=== PATIENT | male | born 1960 | race Hispanic/Latino ===

== ENCOUNTER 2017-03-13 14:17 | Emergency (ER) | payer OTHER ==
[2017-03-13 15:30] VITALS: BP 144/89
--- NOTE | 2017-03-13 19:46 | Emergency Department Report ---
ED Extremity Problem HPI - General Chief complaint: Extremity Problem,Nontraumatic Stated complaint: RIGHT FOOT INFECTED Time Seen by Provider: 03/13/17 19:29 Source: patient Mode of arrival: Ambulatory Limitations: No Limitations - History of Present Illness Initial comments: Patient he reports right foot infection and pain 2 weeks. Denies similar incident in the past. He said started off with scaling and he's been soaking in Epsom salts but pain and redness is getting worse over the last 2 weeks. Patient does not have a primary care physician. Tetanus vaccine is up-to-date. He denies any injury. He reports that started off with dryness and scaling and then became infected. Pain is 4 out of 10 worse with movement. Denies any fever or chills. Denies any medical problems. Patient is a smoker. MD Complaint: extremity pain, extremity swelling Onset/Timin -: week(s) Location: right, lower extremity History of Same: No -: No myalgia, Yes arthralgia, No fever, No associated dyspnea, No associated chest pain Radiation: none Severity scale (0 -10): 4 Quality: aching Consistency: intermittent Improves with: rest Worsens with: walking, palpation Associated Symptoms: arthralgias. denies: chest pain, shortness of breath, fever, myalgias, rash - Related Data Previous Rx's Medication Instructions Recorded Last Taken Type Acetaminophen/Codeine [Tylenol 1 tab PO Q6H PRN #12 tab 03/13/17 Unknown Rx /Codeine # 3 tab] Fluconazole [Diflucan TAB] 100 mg PO QDAY 3 Days #3 tablet 03/13/17 Unknown Rx Ibuprofen [Motrin] 600 mg PO Q8H PRN 5 Days #15 tablet 03/13/17 Unknown Rx Miconazole 2% [Monistat-Derm] 15 gm TP BID 1 Days #1 tube 03/13/17 Unknown Rx Sulfamethoxazole/Trimethoprim 1 each PO BID 10 Days #20 tablet 03/13/17 Unknown Rx [Bactrim DS TAB] Allergies Allergy/AdvReac Type Severity Reaction Status Date / Time No Known Allergies Allergy Unverified 03/13/17 19:45 ED Review of Systems ROS: Stated complaint: RIGHT FOOT INFECTED Other details as noted in HPI Comment: All other systems reviewed and negative Constitutional: no symptoms reported Respiratory: no symptoms reported Cardiovascular: denies: chest pain, palpitations, dyspnea on exertion, edema, syncope, paroxysmal nocturnal dyspnea Gastrointestinal: denies: abdominal pain, nausea, vomiting Musculoskeletal: joint swelling, arthralgia. denies: back pain, myalgia Skin: change in color Neurological: denies: headache ED Past Medical Hx - Past Medical History Previous Medical History?: No - Surgical History Past Surgical History?: No - Family History Family history: no significant - Social History Smoking Status: Current Every Day Smoker Substance Use Type: None - Medications Home Medications: Home Medications Medication Instructions Recorded Confirmed Last Taken Type Acetaminophen/Codeine [Tylenol 1 tab PO Q6H PRN #12 tab 03/13/17 Unknown Rx /Codeine # 3 tab] Fluconazole [Diflucan TAB] 100 mg PO QDAY 3 Days #3 tablet 03/13/17 Unknown Rx Ibuprofen [Motrin] 600 mg PO Q8H PRN 5 Days #15 tablet 03/13/17 Unknown Rx Miconazole 2% [Monistat-Derm] 15 gm TP BID 1 Days #1 tube 03/13/17 Unknown Rx Sulfamethoxazole/Trimethoprim 1 each PO BID 10 Days #20 tablet 03/13/17 Unknown Rx [Bactrim DS TAB] ED Physical Exam - General Limitations: No Limitations General appearance: alert, in no apparent distress - Head Head exam: Present: atraumatic, normocephalic, normal inspection - Eye Eye exam: Present: normal appearance, PERRL, EOMI Pupils: Present: normal accommodation - ENT ENT exam: Present: normal exam, normal orophraynx, mucous membranes moist - Neck Neck exam: Present: normal inspection, full ROM. Absent: tenderness, meningismus, lymphadenopathy - Respiratory Respiratory exam: Present: normal lung sounds bilaterally. Absent: respiratory distress, chest wall tenderness, accessory muscle use - Cardiovascular Cardiovascular Exam: Present: regular rate, normal rhythm, normal heart sounds. Absent: systolic murmur, diastolic murmur - GI/Abdominal GI/Abdominal exam: Present: soft, normal bowel sounds. Absent: distended, tenderness, guarding, rebound, rigid - Extremities Exam Extremities exam: Present: full ROM, tenderness, normal capillary refill, pedal edema, other (no clubbing or cyanosis. +2 pulses throughout extremities. Mild swelling to both feet with erythema right foot greater than left. Tender to palpate.). Absent: normal inspection, joint swelling, calf tenderness - Expanded Lower Extremity Exam Right Hip exam: Present: normal inspection, full ROM, pelvic stability. Absent: tenderness, swelling, abrasion, laceration, ecchymosis, deformity, crepidus, dislocation, erythema, external rotation, internal rotation, shortening Upper Leg exam: Present: normal inspection, full ROM. Absent: tenderness, swelling, abrasion, laceration, ecchymosis, deformity, crepidus, dislocation, erythema Knee exam: Present: normal inspection, full ROM, full knee extension. Absent: tenderness, swelling, abrasion, laceration, ecchymosis, deformity, crepidus, dislocation, erythema, effusion, pain w/ pronation/supination Lower Leg exam: Present: normal inspection, full ROM. Absent: tenderness, swelling, abrasion, laceration, ecchymosis, deformity, crepidus, dislocation, erythema, palpable cord, Lauren's sign Ankle exam: Present: normal inspection, full ROM. Absent: tenderness, swelling , abrasion, laceration, ecchymosis, deformity, crepidus, dislocation, erythema Foot/Toe exam: Present: full ROM, tenderness, swelling (anterior foot), erythema (anterior foot). Absent: normal inspection, abrasion, laceration, ecchymosis, deformity, crepidus, amputation, puncture wound, foreign body, calcaneal tenderness, tenderness at base of 5th metatarsal, nail avulsion, subungual hematoma Neuro vascular tendon exam: Present: no vascular compromise. Absent: pulse deficit, abnormal cap refill, motor deficit, sensory deficit, tendon deficit, extremity cold to touch, pallor, abnormal 2-point discrimination, decreased fine /light touch, foot drop, peroneal nerve deficit, significant pain with passive ROM of distal joint Gait: Positive: observed and normal - Back Exam Back exam: Present: normal inspection, full ROM. Absent: tenderness, CVA tenderness (R), CVA tenderness (L), muscle spasm, paraspinal tenderness, vertebral tenderness - Neurological Exam Neurological exam: Present: alert, oriented X3, normal gait, reflexes normal. Absent: motor sensory deficit - Psychiatric Psychiatric exam: Present: normal affect, normal mood - Skin Skin exam: Present: warm, rash, erythema (both feet right greater than left). Absent: normal color - Expanded Skin Exam Expanded Type of lesion: Present: rash, other (cellulitis and fungal type infection to both feet right greater than left) Distribution of rash: other (both feet right greater than left) Description of rash: Present: tenderness, erythematous, swelling. Absent: vesicular, blisters, confluent, bullous, crusting, discharge ED Course Vital Signs 03/13/17 15:26 Temperature 98.3 F Pulse Rate 97 H Respiratory 16 Rate Blood Pressure 144/89 O2 Sat by Pulse 98 Oximetry - Reevaluation(s) Reevaluation #1: 03/13/17 21:19 Patient given clindamycin Im, local 5/325 2 tablets by mouth ,Boostrix 0.5 mL. ED Medical Decision Making - Lab Data Result diagrams: 03/13/17 20:02 03/13/17 20:02 Lab Results 03/13/17 03/13/17 Range/Units 20:02 20:02 WBC 7.9 (4.5-11.0) K/mm3 RBC 4.92 (3.65-5.03) M/mm3 Hgb 15.8 H (11.8-15.2) gm/dl Hct 46.5 H (35.5-45.6) % MCV 95 H (84-94) fl MCH 32 (28-32) pg MCHC 34 (32-34) % RDW 14.5 (13.2-15.2) % Plt Count 322 (140-440) K/mm3 Lymph % (Auto) 18.1 (13.4-35.0) % [place] % (Auto) 10.0 H (0.0-7.3) % Eos % (Auto) 3.8 (0.0-4.3) % Baso % (Auto) 1.0 (0.0-1.8) % Lymph # 1.4 (1.2-5.4) K/mm3 [place] # 0.8 (0.0-0.8) K/mm3 Eos # 0.3 (0.0-0.4) K/mm3 Baso # 0.1 (0.0-0.1) K/mm3 Seg Neutrophils % 67.1 (40.0-70.0) % Seg Neutrophils # 5.3 (1.8-7.7) K/mm3 Sodium 131 L (137-145) mmol/L Potassium 4.8 (3.6-5.0) mmol/L Chloride 90.1 L (98-107) mmol/L Carbon Dioxide 28 (22-30) mmol/L Anion Gap 18 mmol/L BUN 5 L (9-20) mg/dL Creatinine 0.7 L (0.8-1.5) mg/dL Estimated GFR > 60 ml/min BUN/Creatinine Ratio 7 % Glucose 90 (75-100) mg/dL Calcium 9.1 (8.4-10.2) mg/dL - Radiology Data Radiology results: report reviewed X-ray bilateral foot negative fracture dislocation and no signs of bony infection. - Medical Decision Making ED Course: Patient here with complaints of rt foot pain, redness and swellling over 2 weeks not getting better with home treatment, physical findings for redness, tenderness, dryness and scaling to both feet right greater than left. Patient is daily smoker and does not have a primary care doctor. X-ray of both feet without any fracture or dislocation or no mention for bone infection. Patient with bilateral tinea pedis with superimposed cellulitis both feet right greater than left. Pedal pulses are 2+. Smoking cessation encouraged and patient given clindamycin 600 mg IM, [place] 5/325 2 tablets by mouth. Boostrix 0.[address] Dumont saw and examined patient agreed with outpatient follow-up at 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 Patient is discharged home with prescription for Diflucan, Miconazole cream, Bactrim DS, Motrin and Tylenol No. 3. He was undescended discharge diagnosis and treatment plan and told to return to the emergency room worsens symptoms. Critical care attestation.: If time is entered above; I have spent that time in minutes in the direct care of this critically ill patient, excluding procedure time. ED Disposition Clinical Impression: Tinea pedis of both feet, Cellulitis of both feet, Nicotine abuse, Arthralgia of both feet Disposition: DC-01 TO HOME OR SELFCARE Is pt being admited?: No Does the pt Need Aspirin: No Condition: Stable Instructions: How to Stop Smoking (ED), Tinea Pedis (ED), Cellulitis (ED), Arthralgia (ED) Additional Instructions: Please stop smoking Take antifungal and anti-bacterial medication as prescribed Apply antifungal cream to both feet. Keep affected areas clean and dry and avoid moisture Please do not drive or operate heavy machinery while taking in Tylenol 3 as this medication causes drowsiness Please follow up with outside [facility] in 2 days See referal to foot doctor retun to ER if symptoms worsens Prescriptions: Acetaminophen/Codeine [Tylenol /Codeine # 3 tab] 1 tab PO Q6H PRN #12 tab PRN Reason: Pain Fluconazole [Diflucan TAB] 100 mg PO QDAY 3 Days #3 tablet Ibuprofen [Motrin] 600 mg PO Q8H PRN 5 Days #15 tablet PRN Reason: Pain Miconazole 2% [Monistat-Derm] 15 gm TP BID 1 Days #1 tube Sulfamethoxazole/Trimethoprim [Bactrim DS TAB] 1 each PO BID 10 Days #20 tablet Referrals: [facility] [Outside] - 03/15/17 WADE PARKER DPM [Staff Physician] - 03/15/17 Forms: Accompanied Note, Work/School Release Form(ED)
[2017-03-13] MEDS ORDERED: NORCO 5/325 PO ONE (19:48)
[2017-03-13] MEDS ORDERED: BOOSTRIX IM ONE (19:48)
[2017-03-13 20:07] LABS: Basophils # (Auto) 0.1 K/mm3 (0.0-0.1); Eosinophils # (Auto) 0.3 K/mm3 (0.0-0.4); Eosinophils % (Auto) 3.8 % (0.0-4.3); Hematocrit 46.5 % (35.5-45.6); Hemoglobin 15.8 gm/dl (11.8-15.2); Lymphocytes # (Auto) 1.4 K/mm3 (1.2-5.4); Lymphocytes % (Auto) 18.1 % (13.4-35.0); Mean Corpuscular HGB Conc 34 % (32-34); Mean Corpuscular Hemoglobin 32 pg (28-32); Mean Corpuscular Volume 95 fl (84-94); Monocytes # (Auto) 0.8 K/mm3 (0.0-0.8); Platelet Count 322 K/mm3 (140-440); Red Blood Count 4.92 M/mm3 (3.65-5.03); Red Cell Distribution Width 14.5 % (13.2-15.2)
[2017-03-13 20:30] LABS: BUN/Creatinine Ratio 7; Blood Urea Nitrogen 5 mg/dL (9-20); Calcium 9.1 mg/dL (8.4-10.2); Hemolysis Index 3
[2017-03-13] MEDS ORDERED: CLEOCIN IM ONE (20:56)
[2017-03-13] MEDS ORDERED: DIFLUCAN PO ONE (21:00)
--- NOTE | 2017-03-13 21:32 | XRay Report ---
FINAL REPORT EXAM: XR FOOT BILAT 2V HISTORY: anastacio foot red swollen.look for bone infection COMPARISON: None available. FINDINGS: Two views of each foot obtained. No focal bony erosive changes. Mild narrowing hypertrophic spurring of the 1st MTP joints. Mild bunion formation. No focal bony erosive changes. No acute fracture dislocation. Probable soft tissue ulceration along the medial margin of the 1st metatarsal bone on the right. IMPRESSION: No focal bony erosive changes. Possible soft tissue ulceration along the medial margin right 1st metatarsal bone. Clinical correlation.
== END 2017-03-13 21:50 | disposition home or self-care (01) ==
LOC: ED 14:17
DX: B35.3 Tinea pedis (principal); L03.116 Cellulitis of left lower limb; L03.115 Cellulitis of right lower limb; F17.200 Nicotine dependence, unspecified, uncomplicated
CPT/HCPCS: 36415; 80048; 85025; 90471; 90715; 96372

== ENCOUNTER 2021-09-25 07:14 | Inpatient (IN) | payer SELFPAY ==
--- NOTE | 2021-09-25 09:23 | XRay Report ---
CHEST 2 VIEWS INDICATION / CLINICAL INFORMATION: Dyspnea. COMPARISON: None available. FINDINGS: SUPPORT DEVICES: None. HEART / MEDIASTINUM: No significant abnormality. LUNGS / PLEURA: The lungs are hyperinflated suggesting underlying COPD. Small bilateral pleural effus ions are present. No evidence for pneumonia or pneumothorax. ADDITIONAL FINDINGS: No significant additional findings. IMPRESSION: 1. COPD. 2. Small bilateral pleural effusions. Signer Name: Tone Felix Jr, MD Signed: 09/25/2021 9:18 AM Workstation Name: [id number]
[2021-09-25] MEDS ORDERED: chlordiazePOXIDE 25 MG CAP PO PRN ×2 (18:36)
[2021-09-25] MEDS ORDERED: LORazepam 2 MG TAB PO PRN ×2 (18:36)
[2021-09-25] MEDS ORDERED: MULTIVITAMINS ,THERAPEUTIC TAB PO ONE (18:36)
[2021-09-25] MEDS ORDERED: PANTOPRAZOLE 40 MG TAB PO ONE (18:36)
--- NOTE | 2021-09-25 18:39 | Emergency Department Report ---
<MARJAN URIOSTEGUI - Last Filed: 09/25/21 21:00> ED General Adult HPI - General Chief complaint: Pain General Stated complaint: Lower extremity swelling. Left foot pain. Nonspecific left- sided chest pain Time Seen by Provider: 09/25/21 18:35 Source: patient, RN notes reviewed, old records reviewed Mode of arrival: Ambulatory Limitations: No Limitations - History of Present Illness Initial comments: The patient was evaluated in the emergency department for symptoms described in the history of present illness. He/she was evaluated in the context of the global COVID-19 pandemic, which necessitated consideration that the patient might be at risk for infection with the virus that causes COVID-19. Institutional protocols and algorithms that pertain to the evaluation of patients at risk for COVID-19 are in a state of rapid change based on information released by regulatory bodies including the CDC and federal and state organizations. These policies and algorithms were followed during the patient's care in the emergency department. Please note that these policies, procedures and recommendations changed on a rapid basis. This is a 61-year-old gentleman who is left-hand dominant. He presents to the department today with multiple complaints. His first complaint is intermittent left-sided chest discomfort, present for the past few weeks. The chest discomfort does not radiate to the back, arms. There is occasional left-sided trapezius discomfort. The patient denies travel, surgery, immobilization. The patient does report a mechanical fall around 2 weeks ago, and has subsequent left lower extremity swelling. He also has left plantar foot pain. He currently has no headache, midline neck pain, abdominal pain, vomiting. He denies hematemesis and bright red blood per rectum. He occasionally consumes alcohol. His last alcoholic beverage was yesterday. -: days(s), week(s) Location: chest, back, left, lower extremity Severity scale (0 -10): 3 Quality: aching Consistency: intermittent Improves with: none Worsens with: movement (Lower extremity pain increases with palpation and range of motion) - Related Data Previous Rx's Medication Instructions Recorded Last Taken Type Acetaminophen/Codeine [Tylenol 1 tab PO Q6H PRN #12 tab 03/13/17 Unknown Rx /Codeine # 3 tab] Fluconazole [Diflucan TAB] 100 mg PO QDAY 3 Days #3 tablet 03/13/17 Unknown Rx Ibuprofen [Motrin] 600 mg PO Q8H PRN 5 Days #15 tablet 03/13/17 Unknown Rx Miconazole 2% [Monistat-Derm] 15 gm TP BID 1 Days #1 tube 03/13/17 Unknown Rx Sulfamethoxazole/Trimethoprim 1 each PO BID 10 Days #20 tablet 03/13/17 Unknown Rx [Bactrim DS TAB] Allergies Allergy/AdvReac Type Severity Reaction Status Date / Time No Known Allergies Allergy Verified 09/25/21 15:44 ED Review of Systems Constitutional: denies: fever Eyes: denies: eye discharge ENT: denies: epistaxis Respiratory: denies: cough Cardiovascular: chest pain. denies: syncope Gastrointestinal: denies: abdominal pain, hematemesis, melena, hematochezia Genitourinary: denies: dysuria Musculoskeletal: joint swelling, arthralgia, myalgia Skin: other (Left lower extremity ecchymosis) Neurological: denies: weakness Hematological/Lymphatic: denies: easy bleeding ED Past Medical Hx - Social History Smoking Status: Current Every Day Smoker Substance Use Type: None - Medications Home Medications: Home Medications Medication Instructions Recorded Confirmed Last Taken Type Acetaminophen/Codeine [Tylenol 1 tab PO Q6H PRN #12 tab 03/13/17 Unknown Rx /Codeine # 3 tab] Fluconazole [Diflucan TAB] 100 mg PO QDAY 3 Days #3 tablet 03/13/17 Unknown Rx Ibuprofen [Motrin] 600 mg PO Q8H PRN 5 Days #15 tablet 03/13/17 Unknown Rx Miconazole 2% [Monistat-Derm] 15 gm TP BID 1 Days #1 tube 03/13/17 Unknown Rx Sulfamethoxazole/Trimethoprim 1 each PO BID 10 Days #20 tablet 03/13/17 Unknown Rx [Bactrim DS TAB] ED Physical Exam - General Limitations: No Limitations General appearance: alert, anxious - Head Head exam: Present: atraumatic, normocephalic - Eye Eye exam: Present: normal appearance, EOMI. Absent: nystagmus - ENT ENT exam: Present: normal orophraynx, mucous membranes dry, normal external ear exam - Neck Neck exam: Present: normal inspection, full ROM. Absent: tenderness, meningismus - Respiratory Respiratory exam: Present: normal lung sounds bilaterally (There is no redness, pus or streaking), chest wall tenderness, other (There is reproducible musculoskeletal chest wall tenderness and trapezius tenderness on the left-hand side). Absent: respiratory distress, wheezes, rales, rhonchi, stridor - Cardiovascular Cardiovascular Exam: Present: normal rhythm, bradycardia, normal heart sounds. Absent: tachycardia, irregular rhythm, systolic murmur, diastolic murmur, rubs, gallop - GI/Abdominal GI/Abdominal exam: Present: soft. Absent: distended, tenderness, guarding, rebound, rigid, pulsatile mass - Rectal Rectal exam: Present: deferred - Extremities Exam Extremities exam: Present: full ROM, tenderness (There is left-sided plantar foot tenderness, and ecchymosis.), normal capillary refill, pedal edema, other (2+ pulses noted in the bilateral upper and lower extremities. The upper extremities are nontender. The pelvis is nontender. The right lower extremity is nontender.). Absent: normal inspection (There is left lower extremity swelling, and right lower extremity swelling, left lower extremity more swollen than the right lower extremity.), calf tenderness - Back Exam Back exam: Present: normal inspection. Absent: tenderness, CVA tenderness (R), CVA tenderness (L), paraspinal tenderness, vertebral tenderness - Neurological Exam Neurological exam: Present: alert, oriented X3, normal gait, other (No facial droop. Tongue midline. Extraocular movements intact bilaterally. Facial sens ation intact to light touch in V1, V2, V3 distribution bilaterally. 5 and a 5 strength in 4 extremities. Sensation intact to light touch in 4 extremities.). Absent: motor sensory deficit - Psychiatric Psychiatric exam: Present: normal affect, normal mood - Skin Skin exam: Present: warm, dry, intact, ecchymosis. Absent: rash ED Course - Reevaluation(s) Reevaluation #1: 09/25/21 19:27 Differential diagnosis, including but not limited to: Coronary artery disease, COPD, pneumonia, costochondritis, congestive heart failure, renal insufficiency, hepatic insufficiency, lower extremity DVT, pulmonary embolism, electrolyte derangement, alcohol dependence Assessment and plan: 61-year-old gentleman, who is not currently tachycardic, tachypneic or hypoxic, who denies DVT and pulmonary embolism risk factors, who is low risk by Wells criteria for pulmonary embolism, presenting with a primary complaint of nonspecific chest discomfort over the past few weeks, secondary complaint of lower extremity swelling, left greater than right, in the context of falling and tripping on his left lower extremity a few weeks ago. He is clinically sober at this time with a GCS of 15. His EKG is nonspecific. His lower extremities are swollen, although the left lower extremity is asymmetrically swollen when compared to the right lower extremity. He has minimal tongue fasciculations at this time, he is minimally anxious, but he is ambulatory with a steady gait and clinically sober. Placed patient on lead mechanic. Obtain appropriate laboratory studies. Initiate alcohol withdrawal protocol. Reassess after initial diagnostics have resulted. I discussed this with the patient. He is agreeable to the plan of care. 09/25/21 20:48 Laboratory studies are reviewed and appreciated. Currently, there is no technologist who was able to perform a lower extremity DVT study. I suspect that lower extremity swelling is posttraumatic. Patient has an elevated D- dimer, and therefore, a CT scan of the chest is obtained. Interpretation is pending. Should no acute findings be noted, patient will be discharged, with instructions to return first thing tomorrow morning, will we have an dairy manufacturing technologist available, to obtain lower extremity DVT study 09/25/21 20:59 Received verbal report from radiology that patient has multiple bilateral pulmonary emboli, without evidence of right heart strain. At this point in time, the patient now most likely has a DVT in his right lower extremity. He will be medicated with Lovenox, 1 mg/kg I discussed this with the patient. He is agreeable to admission hospitalization. Nighttime ER physician will contact hospitalist nocturnally to arrange admission. The current daytime hospitalist is For admissions - Pulse Oximetry Interpretation Digit-Finger Initial Pulse Oximetry Readin O2 Sat by Pulse Oximetry: 99 Actions Taken: none ED Medical Decision Making - Lab Data Result diagrams: 09/25/21 18:42 09/25/21 18:42 Vital Signs 09/25/21 07:31 Temperature 97.4 F L Pulse Rate 57 L Respiratory 18 Rate Blood Pressure 118/72 [Right] O2 Sat by Pulse 98 Oximetry Lab Results 09/25/21 09/25/21 Range/Units 18:42 18:42 WBC 6.3 (4.5-11.0) K/mm3 RBC 3.85 (3.65-5.03) M/mm3 Hgb 13.2 (11.8-15.2) gm/dl Hct 38.1 (35.5-45.6) % MCV 99 H (84-94) fl MCH 34 H (28-32) pg MCHC 35 H (32-34) % RDW 14.6 (13.2-15.2) % Plt Count 316 (140-440) K/mm3 Lymph % (Auto) 25.1 (13.4-35.0) % [place] % (Auto) 13.4 H (0.0-7.3) % Eos % (Auto) 1.7 (0.0-4.3) % Baso % (Auto) 0.9 (0.0-1.8) % Lymph # (Auto) 1.6 (1.2-5.4) K/mm3 [place] # (Auto) 0.8 (0.0-0.8) K/mm3 Eos # (Auto) 0.1 (0.0-0.4) K/mm3 Baso # (Auto) 0.1 (0.0-0.1) K/mm3 Seg Neutrophils % 58.9 (40.0-70.0) % Seg Neutrophils # 3.7 (1.8-7.7) K/mm3 PT 13.9 (12.2-14.9) Sec. INR 0.97 (0.87-1.13) - EKG Data -: EKG Interpreted by [facility] EKG shows normal: sinus rhythm Rate: normal - EKG Data 09/25/21 19:25 The EKG is interpreted at 18: 54 Sinus rhythm, bradycardia, rate 59 bpm. Normal axis, normal intervals, left ventricular hypertrophy. Symmetric peak T waves. Poor R wave progression. Abnormal EKG. Not a STEMI. No prior for comparison - Radiology Data Radiology results: pending, report reviewed, image reviewed CHEST 2 VIEWS INDICATION / CLINICAL INFORMATION: Dyspnea. COMPARISON: None available. FINDINGS: SUPPORT DEVICES: None. HEART / MEDIASTINUM: No significant abnormality. LUNGS / PLEURA: The lungs are hyperinflated suggesting underlying COPD. Small bilateral pleural effusions are present. No evidence for pneumonia or pneumothorax. ADDITIONAL FINDINGS: No significant additional findings. IMPRESSION: 1. COPD. 2. Small bilateral pleural effusions. Signer Name: Tone Felix Jr, MD Signed: 09/25/2021 8:18 AM Workstation Name: [id number] LEFT FOOT 2 VIEW(S) INDICATION / CLINICAL INFORMATION: Left lower extremity pain and swelling COMPARISON: None available. FINDINGS: BONES / JOINT(S): No acute fracture or subluxation. No significant arthritis. SOFT TISSUES: Soft tissue swelling about the dorsum of the foot. ADDITIONAL FINDINGS: None. LEFT ANKLE 4 VIEW(S) INDICATION / CLINICAL INFORMATION: Left lower extremity pain and swelling COMPARISON: None available. FINDINGS: BONES / JOINT(S): No acute fracture or subluxation. No significant arthritis. SOFT TISSUES: No significant abnormality. ADDITIONAL FINDINGS: None. LEFT TIBIA-FIBULA 2 VIEW(S) INDICATION / CLINICAL INFORMATION: Left lower extremity pain and swelling COMPARISON: None available. FINDINGS: BONES / JOINT(S): No acute fracture or subluxation. No significant arthritis. SOFT TISSUES: No significant abnormality. ADDITIONAL FINDINGS: None. Signer Name: Luciano Neno MayfieldWardDO Signed: 09/25/2021 6:35 PM Workstation Name: [id number] CTA CHEST WITH CONTRAST INDICATION / CLINICAL INFORMATION: Acute chest pain, lower extremity swelling 100ml of [id number] . TECHNIQUE: Axial CT images were ob tained through the chest after injection of 100 cc Omnipaque 350 IV contrast. 3 plane MIP and/or 3D reconstructions were produced. All CT scans at this location are performed using CT dose reduction for ALARA by means of automated exposure control. COMPARISON: None available. FINDINGS: PULMONARY ARTERIES: Pulmonary emboli within subsegmental right lower lobe. There is also pulmonary embolism within the subsegmental right upper lobe. Additional pulmonary emboli are noted with subsegmental left lower lobe. THORACIC AORTA: No significant abnormality. HEART: No significant abnormality. CORONARY ARTERY CALCIFICATION: None. MEDIASTINUM / KADY: No significant abnormality. PLEURA: Small left pleural effusion. No pneumothorax. LUNGS: There is upper lobe predominant severe emphysema. ADDITIONAL FINDINGS: None. UPPER ABDOMEN: No acute findings. SKELETAL STRUCTURES: No significant osseous abnormality. IMPRESSION: 1. Multiple subsegmental pulmonary emboli. 2. Upper lobe predominant severe emp hysema. CRITICAL RESULT Time of Discovery (NURSING HOME AIDE/CDT): 7:50 PM Time of Communication (NURSING HOME AIDE/CDT): 7:54 PM Licensed Practitioner Receiving Report: Dr. Uriostegui Read-Back Performed: Yes. Signer Name: Luciano Hopper DO Signed: 09/25/2021 7:55 PM Workstation Name: [email or web address] ED Disposition Clinical Impression: Multiple pulmonary emboli, Left leg swelling, Nonspecific chest pain, Left leg pain Disposition: ADMITTED INPATIENT Is pt being admited?: Yes Does the pt Need Aspirin: No Condition: Good Instructions: Nonspecific Chest Pain, Adult Referrals: ANNABEL RODRIGUEZ MD [Primary Care Provider] - 3-5 Days Heart Score - HEART Score History: Slightly suspicious EKG: Non-specific Age: 45-65 Risk factors: 1-2 risk factors Troponin: < normal limit HEART Score: 3 - EKG Read Time Time EKG Completed: 18:54 EKG Read Time: 18:54 - Critical Actions Critical Actions: 0-3 pts:0.9-1.7%risk of adverse cardiac event.Candidate for discharge <ANNE-MARIE GONZALEZ - Last Filed: 09/25/21 21:58> ED Review of Systems ROS: Stated complaint: Lower extremity swelling. Left foot pain. Nonspecific left- sided chest pain Other details as noted in HPI ED Course Vital Signs 09/25/21 09/25/21 07:31 21:01 Temperature 97.4 F L Pulse Rate 57 L Respiratory 18 Rate Blood Pressure 118/72 [Right] O2 Sat by Pulse 98 Oximetry O2 Sat by Pulse 99 Oximetry [ Digit-Finger] ED Medical Decision Making - Lab Data Result diagrams: 09/25/21 18:42 09/25/21 18:42 Critical care attestation.: If time is entered above; I have spent that time in minutes in the direct care of this critically ill patient, excluding procedure time. ED Disposition Is pt being admited?: Yes Does the pt Need Aspirin: No
[2021-09-25 19:14] LABS: Basophils # (Auto) 0.1 K/mm3 (0.0-0.1); Basophils % (Auto) 0.9 % (0.0-1.8); Eosinophils # (Auto) 0.1 K/mm3 (0.0-0.4); Eosinophils % (Auto) 1.7 % (0.0-4.3); Hematocrit 38.1 % (35.5-45.6); Hemoglobin 13.2 gm/dl (11.8-15.2); Lymphocytes # (Auto) 1.6 K/mm3 (1.2-5.4); Lymphocytes % (Auto) 25.1 % (13.4-35.0); Mean Corpuscular HGB Conc 35 % (32-34); Mean Corpuscular Volume 99 fl (84-94); Monocytes # (Auto) 0.8 K/mm3 (0.0-0.8); Monocytes % (Auto) 13.4 % (0.0-7.3); Platelet Count 316 K/mm3 (140-440); Red Blood Count 3.85 M/mm3 (3.65-5.03); Red Cell Distribution Width 14.6 % (13.2-15.2)
[2021-09-25 19:24] LABS: INR 0.97 (0.87-1.13)
[2021-09-25 19:34] LABS: Alanine Aminotransferase 6 units/L (7-56); Albumin 3.4 g/dL (3.9-5); Blood Urea Nitrogen 4 mg/dL (9-20); Calcium 9.2 mg/dL (8.4-10.2); Hemolysis Index 3
[2021-09-25 19:35] LABS: BUN/Creatinine Ratio 7
--- NOTE | 2021-09-25 19:39 | XRay Report ---
LEFT FOOT 2 VIEW(S) INDICATION / CLINICAL INFORMATION: Left lower extremity pain and swelling COMPARISON: None available. FINDINGS: BONES / JOINT(S): No acute fracture or subluxation. No significant arthritis. SOFT TISSUES: Soft tissue swelling about the dorsum of the foot. ADDITIONAL FINDINGS: None. LEFT ANKLE 4 VIEW(S) INDICATION / CLINICAL INFORMATION: Left lower extremity pain and swelling COMPARISON: None available. FINDINGS: BONES / JOINT(S): No acute fracture or subluxation. No significant arthritis. SOFT TISSUES: No significant abnormality. ADDITIONAL FINDINGS: None. LEFT TIBIA-FIBULA 2 VIEW(S) INDICATION / CLINICAL INFORMATION: Left lower extremity pain and swelling COMPARISON: None available. FINDINGS: BONES / JOINT(S): No acute fracture or subluxation. No significant arthritis. SOFT TISSUES: No significant abnormality. ADDITIONAL FINDINGS: None. Signer Name: Luciano Hopper DO Signed: 09/25/2021 7:35 PM Workstation Name: [id number]
[2021-09-25] MEDS ORDERED: ENOXAPARIN 100 MG/1 ML INJ SUB-Q STA (20:58)
[2021-09-25] MEDS ORDERED: ACETAMINOPHEN 325 MG TAB PO STA (20:58)
--- NOTE | 2021-09-25 20:59 | Cat Scan Report ---
CTA CHEST WITH CONTRAST INDICATION / CLINICAL INFORMATION: Acute chest pain, lower extremity swelling 100ml of [id number] . TECHNIQUE: Axial CT images were obtained through the chest after injection of 100 cc Omnipaque 350 IV contrast. 3 plane MIP and/or 3D reconstructions were produced. All CT scans at this location are per formed using CT dose reduction for ALARA by means of automated exposure control. COMPARISON: None available. FINDINGS: PULMONARY ARTERIES: Pulmonary emboli within subsegmental right lower lobe. There is also pulmonary em bolism within the subsegmental right upper lobe. Additional pulmonary emboli are noted with subsegmen hansa left lower lobe. THORACIC AORTA: No significant abnormality. HEART: No significant abnormality. CORONARY ARTERY CALCIFICATION: None. MEDIASTINUM / KADY: No significant abnormality. PLEURA: Small left pleural effusion. No pneumothorax. LUNGS: There is upper lobe predominant severe emphysema. ADDITIONAL FINDINGS: None. UPPER ABDOMEN: No acute findings. SKELETAL STRUCTURES: No significant osseous abnormality. IMPRESSION: 1. Multiple subsegmental pulmonary emboli. 2. Upper lobe predominant severe emphysema. CRITICAL RESULT Time of Discovery (BRAIN PICKER/CDT): 7:50 PM Time of Communication (BRAIN PICKER/CDT): 7:54 PM Licensed Practitioner Receiving Report: Dr. Uriostegui Read-Back Performed: Yes. Signer Name: Luciano Hopper DO Signed: 09/25/2021 8:55 PM Workstation Name: [id number]
[2021-09-26] MEDS ORDERED: traMADol 50 MG TAB PO PRN (01:30)
[2021-09-26] MEDS ORDERED: HEPARIN 10,000 UNITS/10 ML VIAL IV PRN (01:30)
[2021-09-26] MEDS ORDERED: MORPHINE 4 MG/1 ML INJ IV PRN (01:30)
[2021-09-26] MEDS ORDERED: NITROGLYCERIN 0.4 MG TAB SUBL SL PRN (01:30)
[2021-09-26] MEDS ORDERED: HEPARIN 10,000 UNITS/10 ML VIAL IV ONE (01:30)
--- NOTE | 2021-09-26 01:43 | History and Physical Report ---
History of Present Illness Date of examination: 09/26/21 Date of admission: 09/26/21 Chief complaint: Lower extremity swelling. Left foot pain. Nonspecific left-sided chest pain History of present illness: 61-year-old gentleman with history of tobacco abuse and alcohol abuse was brought to the emergency room because of intermittent left-sided chest discomfort, present for the past few weeks. The chest discomfort does not radiate to the back, arms. There is occasional left-sided trapezius discomfort. The patient denies travel, surgery, immobilization. The patient does report a mechanical fall around 2 weeks ago, and has subsequent left lower extremity sw elling. He also has left plantar foot pain. He currently has no headache, midline neck pain, abdominal pain, vomiting. He denies hematemesis and bright red blood per rectum. He occasionally consumes alcohol. His last alcoholic beverage was yesterday. In the emergency room initial cardiac enzyme is negative troponin is 0.010, x- ray of the foot shows no acute abnormality but CTA of the chest showed multiple subsegmental pulmonary embolism. Upper lobe predominant severe emphysema. She was going to admit the patient we will put the patient on heparin drip. We do the serial cardiac enzyme. We also put the patient on chest pain pathway Past History Past Medical History: other (Tobacco abuse alcohol abuse) Past Surgical History: No surgical history Social history: smoking, alcohol abuse Family history: hypertension Medications and Allergies Allergies Allergy/AdvReac Type Severity Reaction Status Date / Time No Known Allergies Allergy Verified 09/25/21 15:44 Home Medications Medication Instructions Recorded Confirmed Last Taken Type Acetaminophen/Codeine [Tylenol 1 tab PO Q6H PRN #12 tab 03/13/17 Unknown Rx /Codeine # 3 tab] Fluconazole [Diflucan TAB] 100 mg PO QDAY 3 Days #3 tablet 03/13/17 Unknown Rx Ibuprofen [Motrin] 600 mg PO Q8H PRN 5 Days #15 tablet 03/13/17 Unknown Rx Miconazole 2% [Monistat-Derm] 15 gm TP BID 1 Days #1 tube 03/13/17 Unknown Rx Sulfamethoxazole/Trimethoprim 1 each PO BID 10 Days #20 tablet 03/13/17 Unknown Rx [Bactrim DS TAB] Active Meds: Active Medications Acetaminophen (Acetaminophen 325 Mg Tab) 650 mg PO Q6H PRN PRN Reason: Pain, Mild (1-3) Atorvastatin Calcium (Atorvastatin 40 Mg Tab) 40 mg PO QHS [place] Chlordiazepoxide HCl (Chlordiazepoxide 25 Mg Cap) 50 mg PO Q1HR PRN PRN Reason: [facility]09-28 Chlordiazepoxide HCl (Chlordiazepoxide 25 Mg Cap) 100 mg PO Q1HR PRN PRN Reason: [facility] Heparin Protocol (Heparin No Bolus) 1 each IV ONCE ONE Stop: 09/26/21 01:31 Heparin Sodium (Porcine) (Heparin 10,000 Units/10 Ml Vial) 3,300 unit 40 unit/kg (3300 unit) IV ONCE ONE Stop: 09/26/21 01:31 Heparin Sodium (Porcine) (Heparin 10,000 Units/10 Ml Vial) 3,300 unit 40 uni t/kg (3300 unit) IV Q6H PRN PRN Reason: Anti-Xa Assay < 0.1 units/ml Lorazepam (Lorazepam 2 Mg Tab) 2 mg PO Q1HR PRN PRN Reason: [facility]09-28 Lorazepam (Lorazepam 2 Mg Tab) 4 mg PO Q1HR PRN PRN Reason: [facility] Morphine Sulfate (Morphine 4 Mg/1 Ml Inj) 2 mg IV Q5MIN PRN PRN Reason: Chest Pain unrelieved by NTG Nitroglycerin (Nitroglycerin 0.4 Mg Tab Subl) 0.4 mg SL Q5M PRN PRN Reason: Chest Pain Pantoprazole Sodium (Pantoprazole 40 Mg Tab) 40 mg PO QDAY [place] Sodium Chloride (Sodium Chloride 0.9% 10 Ml Flush Syringe) 10 ml IV PRN PRN PRN Reason: LINE FLUSH Tramadol HCl (Tramadol 50 Mg Tab) 50 mg PO Q6H PRN PRN Reason: Pain, Moderate (4-6) Review of Systems All systems: negative Cardiovascular: chest pain, other (Left lower extremity swelling. Left foot pain) Exam - Constitutional Vitals: Temp Pulse Resp BP Pulse Ox 97.4 F L 89 12 103/67 96 09/25/21 07:31 09/25/21 22:22 09/25/21 22:22 09/25/21 23:01 09/25/21 23:01 General appearance: Present: no acute distress, well-nourished - EENT Eyes: Present: PERRL ENT: hearing intact, clear oral mucosa - Neck Neck: Present: supple, normal ROM - Respiratory Respiratory effort: normal Respiratory: bilateral: CTA - Cardiovascular Heart Sounds: Present: S1 & S2. Absent: rub, click - Extremities Extremities: pulses symmetrical, No edema Extremity abnormal: edema Peripheral Pulses: within normal limits - Abdominal General gastrointestinal: Present: soft, non-tender, non-distended, normal bowel sounds Male genitourinary: Present: normal - Integumentary Integumentary: Present: clear, warm, dry - Musculoskeletal Musculoskeletal: gait normal, strength equal bilaterally - Psychiatric Psychiatric: appropriate mood/affect, intact judgment & insight - Neurologic Neurologic: CNII-XII intact, moves all extremities HEART Score - HEART Score EKG: Non-specific Age: 45-65 Risk factors: 1-2 risk factors Troponin: Troponin T < 0.010 ng/mL (0.00-0.029) 09/25/21 18:42 Troponin: < normal limit - Critical Actions Critical Actions: 0-3 pts:0.9-1.7%risk of adverse cardiac event.Candidate for discharge Results - Labs CBC & Chem 7: 09/25/21 18:42 09/25/21 18:42 Labs: Laboratory Last Values WBC 6.3 K/mm3 (4.5-11.0) 09/25/21 18:42 RBC 3.85 M/mm3 (3.65-5.03) 09/25/21 18:42 Hgb 13.2 gm/dl (11.8-15.2) 09/25/21 18:42 Hct 38.1 % (35.5-45.6) 09/25/21 18:42 MCV 99 fl (84-94) H 09/25/21 18:42 MCH 34 pg (28-32) H 09/25/21 18:42 MCHC 35 % (32-34) H 09/25/21 18:42 RDW 14.6 % (13.2-15.2) 09/25/21 18:42 Plt Count 316 K/mm3 (140-440) 09/25/21 18:42 Lymph % (Auto) 25.1 % (13.4-35.0) 09/25/21 18:42 [place] % (Auto) 13.4 % (0.0-7.3) H 09/25/21 18:42 Eos % (Auto) 1.7 % (0.0-4.3) 09/25/21 18:42 Baso % (Auto) 0.9 % (0.0-1.8) 09/25/21 18:42 Lymph # (Auto) 1.6 K/mm3 (1.2-5.4) 09/25/21 18:42 [place] # (Auto) 0.8 K/mm3 (0.0-0.8) 09/25/21 18:42 Eos # (Auto) 0.1 K/mm3 (0.0-0.4) 09/25/21 18:42 Baso # (Auto) 0.1 K/mm3 (0.0-0.1) 09/25/21 18:42 Seg Neutrophils % 58.9 % (40.0-70.0) 09/25/21 18:42 Seg Neutrophils # 3.7 K/mm3 (1.8-7.7) 09/25/21 18:42 PT 13.9 Sec. (12.2-14.9) 09/25/21 18:42 INR 0.97 (0.87-1.13) 09/25/21 18:42 D-Dimer 1433.65 ng/mlDDU (0-234) H 09/25/21 18:42 Sodium 140 mmol/L (137-145) 09/25/21 18:42 Potassium 4.2 mmol/L (3.6-5.0) 09/25/21 18:42 Chloride 102.6 mmol/L (98-107) 09/25/21 18:42 Carbon Dioxide 21 mmol/L (22-30) L 09/25/21 18:42 Anion Gap 21 mmol/L 09/25/21 18:42 BUN 4 mg/dL (9-20) L 09/25/21 18:42 Creatinine 0.6 mg/dL (0.8-1.3) L 09/25/21 18:42 Estimated GFR > 60 ml/min 09/25/21 18:42 BUN/Creatinine Ratio 7 % 09/25/21 18:42 Glucose 78 mg/dL (75-100) 09/25/21 18:42 Calcium 9.2 mg/dL (8.4-10.2) 09/25/21 18:42 Magnesium 2.20 mg/dL (1.7-2.3) 09/25/21 18:42 Total Bilirubin 0.70 mg/dL (0.1-1.2) 09/25/21 18:42 AST 12 units/L (5-40) 09/25/21 18:42 ALT 6 units/L (7-56) L 09/25/21 18:42 Alkaline Phosphatase 73 units/L (35-129) 09/25/21 18:42 Total Creatine Kinase 54 units/L (55-170) L 09/25/21 18:42 Troponin T < 0.010 ng/mL (0.00-0.029) 09/25/21 18:42 NT-Pro-B Natriuret Pep 339.5 pg/mL (0-900) 09/25/21 19:26 Total Protein 7.5 g/dL (6.3-8.2) 09/25/21 18:42 Albumin 3.4 g/dL (3.9-5) L 09/25/21 18:42 Albumin/Globulin Ratio 0.8 % 09/25/21 18:42 Salicylates < 0.3 mg/dL (2.8-20.0) L 09/25/21 18:42 Acetaminophen 5.0 ug/mL (10.0-30.0) L 09/25/21 18:42 Plasma/Serum Alcohol < 0.01 % (0-0.07) 09/25/21 18:42 - Imaging and Cardiology CT scan - chest: report reviewed Assessment and Plan VTE prophylaxis?: Chemical Plan of care discussed with patient/family: Yes - Patient Problems (1) Multiple pulmonary emboli Current Visit: Yes Status: Acute Plan to address problem: Admit the patient to the telemetry. Aspirin 81 mg p.o. daily. Lipitor 40 mg p.o. daily. Heparin drip. Echocardiogram. Consult cardiology if needed (2) ACS (acute coronary syndrome) Current Visit: Yes Status: Acute Plan to address problem: Admit the patient to the telemetry. Aspirin 81 mg p.o. daily. Lipitor 40 mg p.o. daily. Heparin drip. Echocardiogram. Consult cardiology if needed (3) Tobacco abuse Current Visit: Yes Status: Acute Plan to address problem: We counseled the patient regarding quitting smoking. We put the patient on nicotine patch (4) Alcohol abuse Current Visit: Yes Status: Acute Plan to address problem: We counseled the patient quit drinking. We put the patient on CIWA protocol. We also put the patient thiamine folic acid and banana bag daily (5) Left leg pain Current Visit: Yes Status: Acute Plan to address problem: Tylenol 650 mg p.o. every 6 hours as needed. Morphine 2 mg IV every 4 hours as needed. We will monitor the patient closely (6) Left leg swelling Current Visit: Yes Status: Acute Plan to address problem: Lasix 40 mg IV x1 dose. We will do a venous Doppler to rule out DVT (7) DVT prophylaxis Current Visit: Yes Status: Acute Plan to address problem: Heparin drip for DVT prophylaxis. Protonix 40 mg p.o. daily for GI prophylaxis. Patient is a full code
[2021-09-26] MEDS ORDERED: THIAMINE 100 MG, FOLIC ACID 1 MG, MULTIPLE VITAMIN INJ, ADULT 10 ML in SODIUM CHLORIDE ... IV ONE (01:47)
[2021-09-26] MEDS: HEPARIN/ 0.45% NACL DRIP 25,000 UNIT/500 ML BAG IV SCH ×3 (02:35→22:37)
[2021-09-26 06:59] LABS: Hematocrit 38.6 % (35.5-45.6)
[2021-09-26 07:27] LABS: Blood Urea Nitrogen 4 mg/dL (9-20); Calcium 8.5 mg/dL (8.4-10.2); Hemolysis Index 5
[2021-09-26 07:41] LABS: Partial Thromboplastin Time 75.6 Sec. (24.2-36.6)
[2021-09-26 07:46] LABS: BUN/Creatinine Ratio 8
[2021-09-26 08:20] LABS: Hematocrit 40.1 % (35.5-45.6); Hemoglobin 13.3 gm/dl (11.8-15.2); Mean Corpuscular HGB Conc 33 % (32-34); Mean Corpuscular Volume 98 fl (84-94); Platelet Count 316 K/mm3 (140-440); Red Blood Count 4.09 M/mm3 (3.65-5.03); Red Cell Distribution Width 14.6 % (13.2-15.2)
[2021-09-26 08:27] LABS: Basophils # (Auto) 0.1 K/mm3 (0.0-0.1); Basophils % (Auto) 1.1 % (0.0-1.8); Eosinophils # (Auto) 0.1 K/mm3 (0.0-0.4); Eosinophils % (Auto) 1.8 % (0.0-4.3); Lymphocytes # (Auto) 2.1 K/mm3 (1.2-5.4); Lymphocytes % (Auto) 32.6 % (13.4-35.0); Monocytes # (Auto) 0.8 K/mm3 (0.0-0.8)
[2021-09-26 08:28] LABS: Monocytes % (Auto) 13.1 % (0.0-7.3)
[2021-09-26] MEDS: NICOTINE 14 MG/24 HR PATCH TD SCH (09:51)
[2021-09-26] MEDS: PANTOPRAZOLE 40 MG TAB PO SCH (09:51)
[2021-09-26] MEDS: ACETAMINOPHEN 325 MG TAB PO PRN (20:44)
--- NOTE | 2021-09-27 09:20 | Event Note ---
Date: 09/26/21 Patient was evaluated this morning, and he was found to be hemodynamically stable. #Newly diagnosed pulmonary emboli #Left leg swelling Visualized on CT angio chest. Started on heparin drip. Currently hemodynamically stable and on room air. Likely source of pulmonary emboli. Will discuss with patient about current financial ability to pay for DOAC upon discharge. #Acute coronary syndromeruled out Unremarkable troponins. TTE unremarkable with no sign of PFO. #Alcohol dependence - Counseled patient on the importance of ETOH cessation. Assess patient's current ETOH consumption. Assisted with trying to arrange resources for patient to adequately work towards ETOH cessation. Patient expresses understanding. Continue with CIWA protocol, thiamine, folic acid, and banana bag. -Time: +15 mins #Tobacco dependence #Tobacco/Smoking cessation counseling - Counseled patient about the importance of smoking cessation and the possible sequelae as a result of continued tobacco consumption. The patient expresses understanding. Continue nicotine patch. -Time: +15 mins #Coordination of CARE time: 30 minutes. Total visit time equals 30 or more minutes with greater than 50% spent [id number] on coordination of care and counseling. #Advanced care planning -Disease education conducted, care plan discussed, diagnoses discussed, prognosis discussed, and patient acknowledges understanding with care plan -Time: +30 min
[2021-09-27] MEDS: NICOTINE 14 MG/24 HR PATCH TD SCH (10:17)
[2021-09-27] MEDS: PANTOPRAZOLE 40 MG TAB PO SCH (10:17)
--- NOTE | 2021-09-27 11:01 | Progress Note ---
Assessment and Plan Assessment and plan: #Newly diagnosed pulmonary emboli #Left leg swelling Visualized on CT angio chest. Started on heparin drip. Currently hemodynamically stable and on room air. Likely source of pulmonary emboli. Bridging with warfarin 5mg daily (INR goal 2-3). Pharmacy consulted for manage ment. #Acute coronary syndromeruled out Unremarkable troponins. TTE unremarkable with no sign of PFO. #Alcohol dependence - Counseled patient on the importance of ETOH cessation. Assess patient's current ETOH consumption. Assisted with trying to arrange resources for patient to adequately work towards ETOH cessation. Patient expresses understanding. Continue with CIWA protocol, thiamine, folic acid, and banana bag. -Time: +15 mins #Tobacco dependence #Tobacco/Smoking cessation counseling - Counseled patient about the importance of smoking cessation and the possible sequelae as a result of continued tobacco consumption. The patient expresses understanding. Continue nicotine patch. -Time: +15 mins #Advanced care planning -Disease education conducted, care plan discussed, diagnoses discussed, prognosis discussed, and patient acknowledges understanding with care plan -Time: +30 min #Discharge planning - pending warfarin bridge with INR goal of 2-3 Disposition Plan: Continue medical management Total Time Spent with Patient (Minutes): 45 min History Interval history: No acute events overnight. Hospitalist Physical - Constitutional Vitals: Temp Pulse Resp BP Pulse Ox 97.4 F L 54 L 18 124/78 98 09/27/21 07:29 09/27/21 07:29 09/27/21 03:57 09/27/21 07:29 09/27/21 07:29 General appearance: Present: no acute distress, well-nourished - EENT Eyes: Present: PERRL, EOM intact ENT: hearing intact, clear oral mucosa, edentulous - Neck Neck: Present: supple, normal ROM - Respiratory Respiratory effort: normal Respiratory: bilateral: CTA - Cardiovascular Rhythm: regular Heart Sounds: Present: S1 & S2 - Extremities Extremities: no ischemia, pulses intact, pulses symmetrical, No edema, normal temperature, normal color, Full ROM Peripheral Pulses: within normal limits - Abdominal General gastrointestinal: soft, non-tender, non-distended, normal bowel sounds - Integumentary Integumentary: Present: clear, warm, dry - Psychiatric Psychiatric: appropriate mood/affect, intact judgment & insight, memory intact, cooperative - Neurologic Neurologic: CNII-XII intact, moves all extremities - Allied Health Allied health notes reviewed: nursing HEART Score - HEART Score EKG: Non-specific Age: 45-65 Risk factors: 1-2 risk factors Troponin: Troponin T < 0.010 ng/mL (0.00-0.029) 09/25/21 18:42 Troponin: < normal limit - Critical Actions Critical Actions: 0-3 pts:0.9-1.7%risk of adverse cardiac event.Candidate for discharge Results - Labs CBC & Chem 7: 09/26/21 06:04 09/26/21 06:04 Labs: Laboratory Last Values WBC 6.4 K/mm3 (4.5-11.0) 09/26/21 06:04 RBC 4.09 M/mm3 (3.65-5.03) 09/26/21 06:04 Hgb 13.0 gm/dl (11.8-15.2) 09/26/21 06:04 Hgb 13.3 gm/dl (11.8-15.2) 09/26/21 06:04 Hct 38.6 % (35.5-45.6) 09/26/21 06:04 Hct 40.1 % (35.5-45.6) 09/26/21 06:04 MCV 98 fl (84-94) H 09/26/21 06:04 MCH 33 pg (28-32) H 09/26/21 06:04 MCHC 33 % (32-34) 09/26/21 06:04 RDW 14.6 % (13.2-15.2) 09/26/21 06:04 Plt Count 309 K/mm3 (140-440) 09/26/21 06:04 Plt Count 316 K/mm3 (140-440) 09/26/21 06:04 Lymph % (Auto) 32.6 % (13.4-35.0) 09/26/21 06:04 [place] % (Auto) 13.1 % (0.0-7.3) H 09/26/21 06:04 Eos % (Auto) 1.8 % (0.0-4.3) 09/26/21 06:04 Baso % (Auto) 1.1 % (0.0-1.8) 09/26/21 06:04 Lymph # (Auto) 2.1 K/mm3 (1.2-5.4) 09/26/21 06:04 [place] # (Auto) 0.8 K/mm3 (0.0-0.8) 09/26/21 06:04 Eos # (Auto) 0.1 K/mm3 (0.0-0.4) 09/26/21 06:04 Baso # (Auto) 0.1 K/mm3 (0.0-0.1) 09/26/21 06:04 Add Manual Diff Complete 09/26/21 06:04 Seg Neutrophils % 51.4 % (40.0-70.0) 09/26/21 06:04 Seg Neutrophils # 3.3 K/mm3 (1.8-7.7) 09/26/21 06:04 PT 14.3 Sec. (12.2-14.9) 09/26/21 06:04 INR 1.00 (0.87-1.13) 09/26/21 06:04 APTT 75.6 Sec. (24.2-36.6) H* 09/26/21 06:04 D-Dimer 1433.65 ng/mlDDU (0-234) H 09/25/21 18:42 Heparin Anti-Xa Level 0.17 U.I./ml (0.3-0.7) L 09/26/21 21:42 Sodium 142 mmol/L (137-145) 09/26/21 06:04 Potassium 4.4 mmol/L (3.6-5.0) 09/26/21 06:04 Chloride 105.9 mmol/L (98-107) 09/26/21 06:04 Carbon Dioxide 25 mmol/L (22-30) 09/26/21 06:04 Anion Gap 16 mmol/L 09/26/21 06:04 BUN 4 mg/dL (9-20) L 09/26/21 06:04 Creatinine 0.5 mg/dL (0.8-1.3) L 09/26/21 06:04 Estimated GFR > 60 ml/min 09/26/21 06:04 BUN/Creatinine Ratio 8 % 09/26/21 06:04 Glucose 74 mg/dL (75-100) L 09/26/21 06:04 Calcium 8.5 mg/dL (8.4-10.2) 09/26/21 06:04 Magnesium 2.20 mg/dL (1.7-2.3) 09/25/21 18:42 Total Bilirubin 0.70 mg/dL (0.1-1.2) 09/25/21 18:42 AST 12 units/L (5-40) 09/25/21 18:42 ALT 6 units/L (7-56) L 09/25/21 18:42 Alkaline Phosphatase 73 units/L (35-129) 09/25/21 18:42 Total Creatine Kinase 54 units/L (55-170) L 09/25/21 18:42 Troponin T < 0.010 ng/mL (0.00-0.029) 09/25/21 18:42 NT-Pro-B Natriuret Pep 339.5 pg/mL (0-900) 09/25/21 19:26 Total Protein 7.5 g/dL (6.3-8.2) 09/25/21 18:42 Albumin 3.4 g/dL (3.9-5) L 09/25/21 18:42 Albumin/Globulin Ratio 0.8 % 09/25/21 18:42 Salicylates < 0.3 mg/dL (2.8-20.0) L 09/25/21 18:42 Acetaminophen 5.0 ug/mL (10.0-30.0) L 09/25/21 18:42 Plasma/Serum Alcohol < 0.01 % (0-0.07) 09/25/21 18:42 [place]/IV: Voiding Method Condom Catheter Active Medications - Current Medications Current Medications: Generic Name Dose Route Start Last Admin Trade Name Freq PRN Reason Stop Dose Admin Acetaminophen 650 mg 09/26/21 01:30 09/26/21 20:44 Acetaminophen 325 Mg Tab PO 650 mg Q6H PRN Administration Pain, Mild (1-3) Atorvastatin Calcium 40 mg 09/26/21 22:00 09/26/21 21:47 Atorvastatin 40 Mg Tab PO 40 mg QHS [place] Administration Chlordiazepoxide HCl 50 mg 09/25/21 18:36 Chlordiazepoxide 25 Mg Cap PO Q1HR PRN CIWA-Ar 8-15 Chlordiazepoxide HCl 100 mg 09/25/21 18:36 Chlordiazepoxide 25 Mg Cap PO Q1HR PRN CIWA-Ar 16-25 Heparin Sodium (Porcine) 3,300 unit 09/26/21 01:30 Heparin 10,000 Units/10 Ml Vial 40 unit/kg (3300 unit) IV Q6H PRN Anti-Xa Assay < 0.1 units/ml Heparin Sodium/Sodium Chloride 25,000 unit in 500 mls @ 24 mls/hr 09/26/21 03:00 09/26/21 22:37 Heparin/ 0.45% Nacl-25,000 Unit/500 Ml IV 1,350 units/hr TITR [place] 27 mls/hr Administration Protocol 1,200 UNITS/HR Lorazepam 2 mg 09/25/21 18:36 09/26/21 20:44 Lorazepam 2 Mg Tab PO 2 mg Q1HR PRN Administration CIWA-Ar 8-15 Lorazepam 4 mg 09/25/21 18:36 Lorazepam 2 Mg Tab PO Q1HR PRN CIWA-Ar 16-25 Morphine Sulfate 2 mg 09/26/21 01:30 Morphine 4 Mg/1 Ml Inj IV Q5MIN PRN Chest Pain unrelieved by NTG Nicotine 14 mg 09/26/21 10:00 09/27/21 10:17 Nicotine 14 Mg/24 Hr Patch TD 14 mg QDAY [facility] Administration Nitroglycerin 0.4 mg 09/26/21 01:30 Nitroglycerin 0.4 Mg Tab Subl SL Q5M PRN Chest Pain Pantoprazole Sodium 40 mg 09/26/21 10:00 09/27/21 10:17 Pantoprazole 40 Mg Tab PO 40 mg QDAY [facility] Administration Sodium Chloride 10 ml 09/26/21 01:30 09/26/21 21:48 Sodium Chloride 0.9% 10 Ml Flush Syringe IV 10 ml PRN PRN Administration LINE FLUSH Tramadol HCl 50 mg 09/26/21 01:30 Tramadol 50 Mg Tab PO Q6H PRN Pain, Moderate (4-6) Warfarin Sodium 5 mg 09/27/21 17:00 Warfarin 5 Mg Tab PO DAILY@1700 [facility] Protocol
[2021-09-27 11:53] LABS: Basophils # (Auto) 0.1 K/mm3 (0.0-0.1); Eosinophils # (Auto) 0.1 K/mm3 (0.0-0.4); Eosinophils % (Auto) 2.3 % (0.0-4.3); Hemoglobin 13.6 gm/dl (11.8-15.2); Lymphocytes # (Auto) 1.6 K/mm3 (1.2-5.4); Lymphocytes % (Auto) 26.1 % (13.4-35.0); Mean Corpuscular HGB Conc 34 % (32-34); Mean Corpuscular Volume 98 fl (84-94); Monocytes # (Auto) 0.5 K/mm3 (0.0-0.8); Monocytes % (Auto) 8.8 % (0.0-7.3); Platelet Count 393 K/mm3 (140-440); Red Blood Count 4.08 M/mm3 (3.65-5.03); Red Cell Distribution Width 14.7 % (13.2-15.2)
[2021-09-27 12:08] LABS: BUN/Creatinine Ratio 5; Blood Urea Nitrogen 3 mg/dL (9-20); Hemolysis Index 3
--- NOTE | 2021-09-27 14:37 | Electrocardiograph Report ---
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
--- NOTE | 2021-09-27 14:39 | Electrocardiograph Report ---
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
--- NOTE | 2021-09-27 14:39 | Electrocardiograph Report ---
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
--- NOTE | 2021-09-27 14:40 | Electrocardiograph Report ---
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
[2021-09-27 17:00] LABS: INR 1.03 (0.87-1.13)
[2021-09-27] MEDS ORDERED: WARFARIN 5 MG TAB PO NR (17:00)
[2021-09-27] MEDS: HEPARIN/ 0.45% NACL DRIP 25,000 UNIT/500 ML BAG IV SCH (17:26)
[2021-09-28 05:32] LABS: Hematocrit 36.4 % (35.5-45.6); Hemoglobin 12.1 gm/dl (11.8-15.2)
[2021-09-28] MEDS: NICOTINE 14 MG/24 HR PATCH TD SCH (11:39)
[2021-09-28] MEDS: PANTOPRAZOLE 40 MG TAB PO SCH (11:42)
[2021-09-28] MEDS: HEPARIN/ 0.45% NACL DRIP 25,000 UNIT/500 ML BAG IV SCH (11:42)
--- NOTE | 2021-09-28 14:18 | Progress Note ---
Assessment and Plan Assessment and plan: #Newly diagnosed pulmonary emboli #Left leg swelling Visualized on CT angio chest. Started on heparin drip. Currently hemodynamically stable and on room air. Likely source of pulmonary emboli. Bridging with warfarin 5mg daily (INR goal 2-3). Pharmacy consulted for manage ment. Current INR: 1.0 #Acute coronary syndromeruled out Unremarkable troponins. TTE unremarkable with no sign of PFO. #Alcohol dependence - Counseled patient on the importance of ETOH cessation. Assess patient's current ETOH consumption. Assisted with trying to arrange resources for patient to adequately work towards ETOH cessation. Patient expresses understanding. Continue with CIWA protocol, thiamine, folic acid, and banana bag. -Time: +15 mins #Tobacco dependence #Tobacco/Smoking cessation counseling - Counseled patient about the importance of smoking cessation and the possible sequelae as a result of continued tobacco consumption. The patient expresses understanding. Continue nicotine patch. -Time: +15 mins #Advanced care planning -Disease education conducted, care plan discussed, diagnoses discussed, prognosis discussed, and patient acknowledges understanding with care plan -Time: +30 min #Discharge planning - pending warfarin bridge with INR goal of 2-3 Disposition Plan: Continue medical management Total Time Spent with Patient (Minutes): 30 minutes History Interval history: No acute events over night. The patient denies fevers, chills, nausea, vomiting, abdominal pain, chest pain/pressure, shortness of breath, urinary symptoms, weakness, or confusion. Hospitalist Physical - Constitutional Vitals: Temp Pulse Resp BP Pulse Ox 97.9 F 57 L 16 120/74 100 09/28/21 10:54 09/28/21 10:54 09/28/21 10:54 09/28/21 10:54 09/28/21 10:54 General appearance: Present: no acute distress, severe distress, well-nourished - EENT Eyes: Present: PERRL, EOM intact ENT: hearing intact, clear oral mucosa, edentulous - Neck Neck: Present: supple, normal ROM - Respiratory Respiratory effort: normal Respiratory: bilateral: CTA - Cardiovascular Rhythm: regular Heart Sounds: Present: S1 & S2 - Extremities Extremities: no ischemia, pulses intact, pulses symmetrical, No edema, normal temperature, normal color, Full ROM Peripheral Pulses: within normal limits - Abdominal General gastrointestinal: soft, non-tender, non-distended, normal bowel sounds - Integumentary Integumentary: Present: clear, warm, dry - Psychiatric Psychiatric: appropriate mood/affect, memory intact, cooperative - Neurologic Neurologic: CNII-XII intact, moves all extremities - Allied Health Allied health notes reviewed: nursing HEART Score - HEART Score EKG: Non-specific Age: 45-65 Risk factors: 1-2 risk factors Troponin: Troponin T < 0.010 ng/mL (0.00-0.029) 09/25/21 18:42 Troponin: < normal limit - Critical Actions Critical Actions: 0-3 pts:0.9-1.7%risk of adverse cardiac event.Candidate for discharge Results - Labs CBC & Chem 7: 09/28/21 04:46 09/27/21 04:00 Labs: Laboratory Last Values WBC 6.0 K/mm3 (4.5-11.0) 09/27/21 04:00 RBC 4.08 M/mm3 (3.65-5.03) 09/27/21 04:00 Hgb 12.1 gm/dl (11.8-15.2) 09/28/21 04:46 Hct 36.4 % (35.5-45.6) 09/28/21 04:46 MCV 98 fl (84-94) H 09/27/21 04:00 MCH 33 pg (28-32) H 09/27/21 04:00 MCHC 34 % (32-34) 09/27/21 04:00 RDW 14.7 % (13.2-15.2) 09/27/21 04:00 Plt Count 347 K/mm3 (140-440) 09/28/21 04:46 Lymph % (Auto) 26.1 % (13.4-35.0) 09/27/21 04:00 [place] % (Auto) 8.8 % (0.0-7.3) H 09/27/21 04:00 Eos % (Auto) 2.3 % (0.0-4.3) 09/27/21 04:00 Baso % (Auto) 2.0 % (0.0-1.8) H 09/27/21 04:00 Lymph # (Auto) 1.6 K/mm3 (1.2-5.4) 09/27/21 04:00 [place] # (Auto) 0.5 K/mm3 (0.0-0.8) 09/27/21 04:00 Eos # (Auto) 0.1 K/mm3 (0.0-0.4) 09/27/21 04:00 Baso # (Auto) 0.1 K/mm3 (0.0-0.1) 09/27/21 04:00 Add Manual Diff Complete 09/26/21 06:04 Seg Neutrophils % 60.8 % (40.0-70.0) 09/27/21 04:00 Seg Neutrophils # 3.6 K/mm3 (1.8-7.7) 09/27/21 04:00 PT 14.3 Sec. (12.2-14.9) 09/28/21 04:46 INR 1.00 (0.87-1.13) 09/28/21 04:46 APTT 75.6 Sec. (24.2-36.6) H* 09/26/21 06:04 D-Dimer 1433.65 ng/mlDDU (0-234) H 09/25/21 18:42 Heparin Anti-Xa Level 0.45 U.I./ml (0.3-0.7) 09/27/21 23:07 Sodium 138 mmol/L (137-145) 09/27/21 04:00 Potassium 4.3 mmol/L (3.6-5.0) 09/27/21 04:00 Chloride 101.3 mmol/L (98-107) 09/27/21 04:00 Carbon Dioxide 25 mmol/L (22-30) 09/27/21 04:00 Anion Gap 16 mmol/L 09/27/21 04:00 BUN 3 mg/dL (9-20) L 09/27/21 04:00 Creatinine 0.6 mg/dL (0.8-1.3) L 09/27/21 04:00 Estimated GFR > 60 ml/min 09/27/21 04:00 BUN/Creatinine Ratio 5 % 09/27/21 04:00 Glucose 98 mg/dL (75-100) 09/27/21 04:00 Calcium 9.0 mg/dL (8.4-10.2) 09/27/21 04:00 Magnesium 2.20 mg/dL (1.7-2.3) 08/12/22 18:42 Total Bilirubin 0.70 mg/dL (0.1-1.2) 09/25/21 18:42 AST 12 units/L (5-40) 09/25/21 18:42 ALT 6 units/L (7-56) L 09/25/21 18:42 Alkaline Phosphatase 73 units/L (35-129) 09/25/21 18:42 Total Creatine Kinase 54 units/L (55-170) L 09/25/21 18:42 Troponin T < 0.010 ng/mL (0.00-0.029) 09/25/21 18:42 NT-Pro-B Natriuret Pep 339.5 pg/mL (0-900) 09/25/21 19:26 Total Protein 7.5 g/dL (6.3-8.2) 09/25/21 18:42 Albumin 3.4 g/dL (3.9-5) L 09/25/21 18:42 Albumin/Globulin Ratio 0.8 % 09/25/21 18:42 Salicylates < 0.3 mg/dL (2.8-20.0) L 09/25/21 18:42 Acetaminophen 5.0 ug/mL (10.0-30.0) L 09/25/21 18:42 Plasma/Serum Alcohol < 0.01 % (0-0.07) 09/25/21 18:42 Newton/IV: Voiding Method External Female Catheter Active Medications - Current Medications Current Medications: Generic Name Dose Route Start Last Admin Trade Name Freq PRN Reason Stop Dose Admin Acetaminophen 650 mg 09/26/21 01:30 09/26/21 20:44 Acetaminophen 325 Mg Tab PO 650 mg Q6H PRN Administration Pain, Mild (1-3) Atorvastatin Calcium 40 mg 09/26/21 22:00 09/27/21 21:43 Atorvastatin 40 Mg Tab PO 40 mg QHS W[place] Administration Chlordiazepoxide HCl 50 mg 09/25/21 18:36 Chlordiazepoxide 25 Mg Cap PO Q1HR PRN CIWA-Ar 8-15 Chlordiazepoxide HCl 100 mg 09/25/21 18:36 Chlordiazepoxide 25 Mg Cap PO Q1HR PRN CIWA-Ar 16-25 Heparin Sodium (Porcine) 3,300 unit 09/26/21 01:30 Heparin 10,000 Units/10 Ml Vial 40 unit/kg (3300 unit) IV Q6H PRN Anti-Xa Assay < 0.1 units/ml Heparin Sodium/Sodium Chloride 25,000 unit in 500 mls @ 24 mls/hr 09/26/21 03:00 09/28/21 11:42 Heparin/ 0.45% Nacl-25,000 Unit/500 Ml IV 1,500 units/hr TITR [place] 30 mls/hr Administration Protocol 1,200 UNITS/HR Lorazepam 2 mg 09/25/21 18:36 09/26/21 20:44 Lorazepam 2 Mg Tab PO 2 mg Q1HR PRN Administration CIWA-Ar 8-15 Lorazepam 4 mg 09/25/21 18:36 Lorazepam 2 Mg Tab PO Q1HR PRN CIWA-Ar 16-25 Morphine Sulfate 2 mg 09/26/21 01:30 Morphine 4 Mg/1 Ml Inj IV Q5MIN PRN Chest Pain unrelieved by NTG Nicotine 14 mg 09/26/21 10:00 09/28/21 11:39 Nicotine 14 Mg/24 Hr Patch TD 14 mg QDAY WINSTON Administration Nitroglycerin 0.4 mg 09/26/21 01:30 Nitroglycerin 0.4 Mg Tab Subl SL Q5M PRN Chest Pain Pantoprazole Sodium 40 mg 09/26/21 10:00 09/28/21 11:42 Pantoprazole 40 Mg Tab PO 40 mg QDAY W[place] Administration Sodium Chloride 10 ml 09/26/21 01:30 09/27/21 21:43 Sodium Chloride 0.9% 10 Ml Flush Syringe IV 10 ml PRN PRN Administration LINE FLUSH Tramadol HCl 50 mg 09/26/21 01:30 Tramadol 50 Mg Tab PO Q6H PRN Pain, Moderate (4-6) Warfarin Sodium 5 mg 09/28/21 17:00 Warfarin 5 Mg Tab PO 09/29/21 16:59 ONCE@1700 NR Protocol
[2021-09-28] MEDS ORDERED: WARFARIN 5 MG TAB PO NR (17:00)
[2021-09-29] MEDS: HEPARIN/ 0.45% NACL DRIP 25,000 UNIT/500 ML BAG IV SCH ×3 (03:06→19:21)
[2021-09-29 04:50] LABS: INR 0.94 (0.87-1.13)
--- NOTE | 2021-09-29 09:11 | Progress Note ---
Assessment and Plan Assessment and plan: #Newly diagnosed pulmonary emboli #Left leg swelling PE Visualized on CT angio chest. continues to be hemodynamically stable and on room air - continue heparin gtt while bridging with warfarin (INR goal 2-3). Pharmacy consulted for management. Current INR: 0.94 - LLE swelling concerning to patient, likely may be DVT, will order LE duplex #Acute coronary syndromeruled out Unremarkable troponins TTE unremarkable with no sign of PFO #Alcohol dependence - Counseled patient on the importance of ETOH cessation. Assess patient's current ETOH consumption. Assisted with trying to arrange resources for patient to adequately work towards ETOH cessation. Patient expresses understanding. Continue with CIWA protocol, thiamine, folic acid, and banana bag. -Time: +15 mins #Tobacco dependence #Tobacco/Smoking cessation counseling - Counseled patient about the importance of smoking cessation and the possible sequelae as a result of continued tobacco consumption. The patient expresses understanding. Continue nicotine patch. -Time: +15 mins #Advanced care planning -Disease education conducted, care plan discussed, diagnoses discussed, prognosis discussed, and patient acknowledges understanding with care plan -Time: +30 min #Discharge planning - pending warfarin bridge with INR goal of 2-3 History Interval history: No acute events overnight. Patient reports improvement in his left and right lo wer extremity swelling, but is concerned that the left is not improved significantly. He denies prior history of blood clots or family history of the same. Patient has not followed with a primary care provider and is not interested in routine cancer screenings. Advised patient that he would require close PCP follow-up since he will be discharged with warfarin. Patient agreeable. Hospitalist Physical - Physical exam Narrative exam: GENERAL: Thin male. In no acute distress. HEENT: Poor dentition. NECK: Supple. CHEST/LUNGS: CTAB on room air HEART/CARDIOVASCULAR: RRR. No murmur, rubs or gallops appreciated. ABDOMEN: +BS. NT/ND. SKIN: No rashes noted. NEURO: No focal motor deficit. Follows all commands. MUSCULOSKELETAL: No joint effusion EXTREMITIES: No cyanosis, clubbing. BLE edema L>R PSYCH: Cooperative. - Constitutional Vitals: Temp Pulse Resp BP Pulse Ox 98.4 F 52 L 16 118/75 98 09/29/21 07:44 09/29/21 07:44 09/29/21 07:44 09/29/21 07:44 09/29/21 07:44 General appearance: Present: no acute distress, severe distress, well-nourished HEART Score - HEART Score EKG: Non-specific Age: 45-65 Risk factors: 1-2 risk factors Troponin: Troponin T < 0.010 ng/mL (0.00-0.029) 09/25/21 18:42 Troponin: < normal limit - Critical Actions Critical Actions: 0-3 pts:0.9-1.7%risk of adverse cardiac event.Candidate for discharge Results - Labs CBC & Chem 7: 09/28/21 04:46 09/27/21 04:00 Labs: Laboratory Last Values WBC 6.0 K/mm3 (4.5-11.0) 09/27/21 04:00 RBC 4.08 M/mm3 (3.65-5.03) 09/27/21 04:00 Hgb 12.1 gm/dl (11.8-15.2) 09/28/21 04:46 Hct 36.4 % (35.5-45.6) 09/28/21 04:46 MCV 98 fl (84-94) H 09/27/21 04:00 MCH 33 pg (28-32) H 09/27/21 04:00 MCHC 34 % (32-34) 09/27/21 04:00 RDW 14.7 % (13.2-15.2) 09/27/21 04:00 Plt Count 347 K/mm3 (140-440) 09/28/21 04:46 Lymph % (Auto) 26.1 % (13.4-35.0) 09/27/21 04:00 [place] % (Auto) 8.8 % (0.0-7.3) H 09/27/21 04:00 Eos % (Auto) 2.3 % (0.0-4.3) 09/27/21 04:00 Baso % (Auto) 2.0 % (0.0-1.8) H 09/27/21 04:00 Lymph # (Auto) 1.6 K/mm3 (1.2-5.4) 09/27/21 04:00 [place] # (Auto) 0.5 K/mm3 (0.0-0.8) 09/27/21 04:00 Eos # (Auto) 0.1 K/mm3 (0.0-0.4) 09/27/21 04:00 Baso # (Auto) 0.1 K/mm3 (0.0-0.1) 09/27/21 04:00 Add Manual Diff Complete 09/26/21 06:04 Seg Neutrophils % 60.8 % (40.0-70.0) 09/27/21 04:00 Seg Neutrophils # 3.6 K/mm3 (1.8-7.7) 09/27/21 04:00 PT 13.6 Sec. (12.2-14.9) 09/29/21 04:18 INR 0.94 (0.87-1.13) 09/29/21 04:18 APTT 75.6 Sec. (24.2-36.6) H* 09/26/21 06:04 D-Dimer 1433.65 ng/mlDDU (0-234) H 09/25/21 18:42 Heparin Anti-Xa Level 0.12 U.I./ml (0.3-0.7) L 09/28/21 22:57 Sodium 138 mmol/L (137-145) 09/27/21 04:00 Potassium 4.3 mmol/L (3.6-5.0) 09/27/21 04:00 Chloride 101.3 mmol/L (98-107) 09/27/21 04:00 Carbon Dioxide 25 mmol/L (22-30) 09/27/21 04:00 Anion Gap 16 mmol/L 09/27/21 04:00 BUN 3 mg/dL (9-20) L 09/27/21 04:00 Creatinine 0.6 mg/dL (0.8-1.3) L 09/27/21 04:00 Estimated GFR > 60 ml/min 09/27/21 04:00 BUN/Creatinine Ratio 5 % 09/27/21 04:00 Glucose 98 mg/dL (75-100) 09/27/21 04:00 Calcium 9.0 mg/dL (8.4-10.2) 09/27/21 04:00 Magnesium 2.20 mg/dL (1.7-2.3) 09/25/21 18:42 Total Bilirubin 0.70 mg/dL (0.1-1.2) 09/25/21 18:42 AST 12 units/L (5-40) 09/25/21 18:42 ALT 6 units/L (7-56) L 09/25/21 18:42 Alkaline Phosphatase 73 units/L (35-129) 09/25/21 18:42 Total Creatine Kinase 54 units/L (55-170) L 09/25/21 18:42 Troponin T < 0.010 ng/mL (0.00-0.029) 09/25/21 18:42 NT-Pro-B Natriuret Pep 339.5 pg/mL (0-900) 09/25/21 19:26 Total Protein 7.5 g/dL (6.3-8.2) 09/25/21 18:42 Albumin 3.4 g/dL (3.9-5) L 09/25/21 18:42 Albumin/Globulin Ratio 0.8 % 09/25/21 18:42 Salicylates < 0.3 mg/dL (2.8-20.0) L 09/25/21 18:42 Acetaminophen 5.0 ug/mL (10.0-30.0) L 09/25/21 18:42 Plasma/Serum Alcohol < 0.01 % (0-0.07) 09/25/21 18:42 [place]/IV: Voiding Method Toilet Active Medications - Current Medications Current Medications: Generic Name Dose Route Start Last Admin Trade Name Freq PRN Reason Stop Dose Admin Acetaminophen 650 mg 09/26/21 01:30 09/26/21 20:44 Acetaminophen 325 Mg Tab PO 650 mg Q6H PRN Administration Pain, Mild (1-3) Atorvastatin Calcium 40 mg 09/26/21 22:00 09/28/21 22:06 Atorvastatin 40 Mg Tab PO 40 mg QHS [place] Administration Chlordiazepoxide HCl 50 mg 09/25/21 18:36 Chlordiazepoxide 25 Mg Cap PO Q1HR PRN CIWA-Ar 8-15 Chlordiazepoxide HCl 100 mg 09/25/21 18:36 Chlordiazepoxide 25 Mg Cap PO Q1HR PRN CIWA-Ar 16-25 Heparin Sodium (Porcine) 3,300 unit 09/26/21 01:30 Heparin 10,000 Units/10 Ml Vial 40 unit/kg (3300 unit) IV Q6H PRN Anti-Xa Assay < 0.1 units/ml Heparin Sodium/Sodium Chloride 25,000 unit in 500 mls @ 24 mls/hr 09/26/21 03:00 09/29/21 03:06 Heparin/ 0.45% Nacl-25,000 Unit/500 Ml IV 1,650 units/hr TITR [place] 33 mls/hr Administration Protocol 1,200 UNITS/HR Lorazepam 2 mg 09/25/21 18:36 09/26/21 20:44 Lorazepam 2 Mg Tab PO 2 mg Q1HR PRN Administration CIWA-Ar 8-15 Lorazepam 4 mg 09/25/21 18:36 Lorazepam 2 Mg Tab PO Q1HR PRN CIWA-Ar 16-25 Morphine Sulfate 2 mg 09/26/21 01:30 Morphine 4 Mg/1 Ml Inj IV Q5MIN PRN Chest Pain unrelieved by NTG Nicotine 14 mg 09/26/21 10:00 09/28/21 11:39 Nicotine 14 Mg/24 Hr Patch TD 14 mg QDAY [place] Administration Nitroglycerin 0.4 mg 09/26/21 01:30 Nitroglycerin 0.4 Mg Tab Subl SL Q5M PRN Chest Pain Pantoprazole Sodium 40 mg 09/26/21 10:00 09/28/21 11:42 Pantoprazole 40 Mg Tab PO 40 mg QDAY [place] Administration Sodium Chloride 10 ml 09/26/21 01:30 09/28/21 22:06 Sodium Chloride 0.9% 10 Ml Flush Syringe IV 10 ml PRN PRN Administration LINE FLUSH Tramadol HCl 50 mg 09/26/21 01:30 Tramadol 50 Mg Tab PO Q6H PRN Pain, Moderate (4-6) Warfarin Sodium 7.5 mg 09/29/21 17:00 Warfarin 7.5 Mg Tab PO 09/30/21 16:59 DAILY@1700 NR
[2021-09-29] MEDS: PANTOPRAZOLE 40 MG TAB PO SCH (16:28)
[2021-09-29] MEDS: NICOTINE 14 MG/24 HR PATCH TD SCH (16:29)
--- NOTE | 2021-09-29 16:42 | Vascular Lab Report ---
DUPLEX DOPPLER LOWER EXTREMITY VEINS, BILATERAL INDICATION / CLINICAL INFORMATION: r/o DVT. TECHNIQUE: Duplex doppler imaging was performed through the veins of both lower extremities using maximo ous compression and other maneuvers. COMPARISON: None available. FINDINGS: RIGHT COMMON FEMORAL VEIN: Negative. RIGHT FEMORAL VEIN: Negative. RIGHT POPLITEAL VEIN: Negative. RIGHT CALF VEINS: Negative. LEFT COMMON FEMORAL VEIN: Negative. LEFT FEMORAL VEIN: Negative. LEFT POPLITEAL VEIN: Negative. LEFT CALF VEINS: Negative. ADDITIONAL FINDINGS: None. IMPRESSION: 1. No sonographic evidence for DVT in either lower extremity. Scribed by: Nayeli Nelson RDMS, HUMBERTO, ANDRA Scribed: 09/29/2021 3:13 PM I have reviewed the images, agree with this report, and edited this report as needed. Signer Name: Jan Spivey MD Signed: 09/29/2021 4:38 PM Workstation Name: [id number]
[2021-09-29] MEDS ORDERED: WARFARIN 7.5 MG TAB PO NR (17:00)
[2021-09-30 05:47] LABS: Hematocrit 37.2 % (35.5-45.6); Hemoglobin 12.6 gm/dl (11.8-15.2)
[2021-09-30 05:56] LABS: INR 1.17 (0.87-1.13)
--- NOTE | 2021-09-30 07:43 | Progress Note ---
Assessment and Plan Assessment and plan: #Newly diagnosed pulmonary emboli #Left leg swelling PE Visualized on CT angio chest. continues to be hemodynamically stable and on room air - continue heparin gtt while bridging with warfarin (INR goal 2-3). Pharmacy consulted for management. Current INR: 1.17 - LLE swelling concerning to patient, likely may be DVT, will order LE duplex #Acute coronary syndromeruled out Unremarkable troponins TTE unremarkable with no sign of PFO #Alcohol dependence - Counseled patient on the importance of ETOH cessation. Assess patient's current ETOH consumption. Assisted with trying to arrange resources for patient to adequately work towards ETOH cessation. Patient expresses understanding. Continue with CIWA protocol, thiamine, folic acid, and banana bag. -Time: +15 mins #Tobacco dependence #Tobacco/Smoking cessation counseling - Counseled patient about the importance of smoking cessation and the possible sequelae as a result of continued tobacco consumption. The patient expresses understanding. Continue nicotine patch. -Time: +15 mins #Advanced care planning -Disease education conducted, care plan discussed, diagnoses discussed, prognosis discussed, and patient acknowledges understanding with care plan -Time: +30 min #Discharge planning - pending warfarin bridge with INR goal of 2-3 History Interval history: No acute events overnight. Patient has no complaints at this time. He was update d about current care plan. Hospitalist Physical - Physical exam Narrative exam: GENERAL: Thin male. In no acute distress. HEENT: Poor dentition. NECK: Supple. CHEST/LUNGS: CTAB on room air HEART/CARDIOVASCULAR: RRR. No murmur, rubs or gallops appreciated. ABDOMEN: +BS. NT/ND. SKIN: No rashes noted. NEURO: No focal motor deficit. Follows all commands. Walking around the room MUSCULOSKELETAL: No joint effusion EXTREMITIES: No cyanosis, clubbing. BLE edema L>R improving. PSYCH: Cooperative. - Constitutional Vitals: Temp Pulse Resp BP Pulse Ox 97.8 F 47 L 16 115/70 97 09/30/21 03:24 09/30/21 06:00 09/30/21 03:24 09/30/21 03:24 09/30/21 03:24 General appearance: Present: no acute distress, severe distress, well-nourished HEART Score - HEART Score EKG: Non-specific Age: 45-65 Risk factors: 1-2 risk factors Troponin: Troponin T < 0.010 ng/mL (0.00-0.029) 09/26/21 06:04 Troponin: < normal limit - Critical Actions Critical Actions: 0-3 pts:0.9-1.7%risk of adverse cardiac event.Candidate for discharge Results - Labs CBC & Chem 7: 09/30/21 05:38 09/27/21 04:00 Labs: Laboratory Last Values WBC 6.0 K/mm3 (4.5-11.0) 09/27/21 04:00 RBC 4.08 M/mm3 (3.65-5.03) 09/27/21 04:00 Hgb 12.6 gm/dl (11.8-15.2) 09/30/21 05:38 Hct 37.2 % (35.5-45.6) 09/30/21 05:38 MCV 98 fl (84-94) H 09/27/21 04:00 MCH 33 pg (28-32) H 09/27/21 04:00 MCHC 34 % (32-34) 09/27/21 04:00 RDW 14.7 % (13.2-15.2) 09/27/21 04:00 Plt Count 342 K/mm3 (140-440) 09/30/21 05:38 Lymph % (Auto) 26.1 % (13.4-35.0) 09/27/21 04:00 [place] % (Auto) 8.8 % (0.0-7.3) H 09/27/21 04:00 Eos % (Auto) 2.3 % (0.0-4.3) 09/27/21 04:00 Baso % (Auto) 2.0 % (0.0-1.8) H 09/27/21 04:00 Lymph # (Auto) 1.6 K/mm3 (1.2-5.4) 09/27/21 04:00 [place] # (Auto) 0.5 K/mm3 (0.0-0.8) 09/27/21 04:00 Eos # (Auto) 0.1 K/mm3 (0.0-0.4) 09/27/21 04:00 Baso # (Auto) 0.1 K/mm3 (0.0-0.1) 09/27/21 04:00 Add Manual Diff Complete 09/26/21 06:04 Seg Neutrophils % 60.8 % (40.0-70.0) 09/27/21 04:00 Seg Neutrophils # 3.6 K/mm3 (1.8-7.7) 09/27/21 04:00 PT 16.3 Sec. (12.2-14.9) H 09/30/21 05:38 INR 1.17 (0.87-1.13) H 09/30/21 05:38 APTT 75.6 Sec. (24.2-36.6) H* 09/26/21 06:04 D-Dimer 1433.65 ng/mlDDU (0-234) H 09/25/21 18:42 Heparin Anti-Xa Level 0.79 U.I./ml (0.3-0.7) H 09/30/21 05:38 Sodium 138 mmol/L (137-145) 09/27/21 04:00 Potassium 4.3 mmol/L (3.6-5.0) 09/27/21 04:00 Chloride 101.3 mmol/L (98-107) 09/27/21 04:00 Carbon Dioxide 25 mmol/L (22-30) 09/27/21 04:00 Anion Gap 16 mmol/L 09/27/21 04:00 BUN 3 mg/dL (9-20) L 09/27/21 04:00 Creatinine 0.6 mg/dL (0.8-1.3) L 09/27/21 04:00 Estimated GFR > 60 ml/min 09/27/21 04:00 BUN/Creatinine Ratio 5 % 09/27/21 04:00 Glucose 98 mg/dL (75-100) 09/27/21 04:00 Calcium 9.0 mg/dL (8.4-10.2) 09/27/21 04:00 Magnesium 2.20 mg/dL (1.7-2.3) 09/25/21 18:42 Total Bilirubin 0.70 mg/dL (0.1-1.2) 09/25/21 18:42 AST 12 units/L (5-40) 09/25/21 18:42 ALT 6 units/L (7-56) L 09/25/21 18:42 Alkaline Phosphatase 73 units/L (35-129) 09/25/21 18:42 Total Creatine Kinase 54 units/L (55-170) L 09/25/21 18:42 Troponin T < 0.010 ng/mL (0.00-0.029) 09/26/21 06:04 NT-Pro-B Natriuret Pep 339.5 pg/mL (0-900) 09/25/21 19:26 Total Protein 7.5 g/dL (6.3-8.2) 09/25/21 18:42 Albumin 3.4 g/dL (3.9-5) L 09/25/21 18:42 Albumin/Globulin Ratio 0.8 % 09/25/21 18:42 Salicylates < 0.3 mg/dL (2.8-20.0) L 09/25/21 18:42 Acetaminophen 5.0 ug/mL (10.0-30.0) L 09/25/21 18:42 Plasma/Serum Alcohol < 0.01 % (0-0.07) 09/25/21 18:42 [place]/IV: Voiding Method Toilet Active Medications - Current Medications Current Medications: Generic Name Dose Route Start Last Admin Trade Name Freq PRN Reason Stop Dose Admin Acetaminophen 650 mg 09/26/21 01:30 09/26/21 20:44 Acetaminophen 325 Mg Tab PO 650 mg Q6H PRN Administration Pain, Mild (1-3) Atorvastatin Calcium 40 mg 09/26/21 22:00 09/29/21 21:20 Atorvastatin 40 Mg Tab PO 40 mg QHS [place] Administration Chlordiazepoxide HCl 50 mg 09/25/21 18:36 Chlordiazepoxide 25 Mg Cap PO Q1HR PRN CIWA-Ar 8-15 Chlordiazepoxide HCl 100 mg 09/25/21 18:36 Chlordiazepoxide 25 Mg Cap PO Q1HR PRN CIWA-Ar 16-25 Heparin Sodium (Porcine) 3,300 unit 09/26/21 01:30 09/29/21 19:09 Heparin 10,000 Units/10 Ml Vial 40 unit/kg (3300 unit) 3,300 unit IV Administration Q6H PRN Anti-Xa Assay < 0.1 units/ml Heparin Sodium/Sodium Chloride 25,000 unit in 500 mls @ 24 mls/hr 09/26/21 03:00 09/30/21 06:49 Heparin/ 0.45% Nacl-25,000 Unit/500 Ml IV 1,700 units/hr TITR [place] 34 mls/hr Titration Protocol 1,200 UNITS/HR Lorazepam 2 mg 09/25/21 18:36 09/26/21 20:44 Lorazepam 2 Mg Tab PO 2 mg Q1HR PRN Administration CIWA-Ar 8-15 Lorazepam 4 mg 09/25/21 18:36 Lorazepam 2 Mg Tab PO Q1HR PRN CIWA-Ar 16-25 Morphine Sulfate 2 mg 09/26/21 01:30 Morphine 4 Mg/1 Ml Inj IV Q5MIN PRN Chest Pain unrelieved by NTG Nicotine 14 mg 09/26/21 10:00 09/29/21 16:29 Nicotine 14 Mg/24 Hr Patch TD 14 mg QDAY W[place]ON Administration Nitroglycerin 0.4 mg 09/26/21 01:30 Nitroglycerin 0.4 Mg Tab Subl SL Q5M PRN Chest Pain Pantoprazole Sodium 40 mg 09/26/21 10:00 09/29/21 16:28 Pantoprazole 40 Mg Tab PO 40 mg QDAY [place] Administration Sodium Chloride 10 ml 09/26/21 01:30 09/29/21 21:20 Sodium Chloride 0.9% 10 Ml Flush Syringe IV 10 ml PRN PRN Administration LINE FLUSH Tramadol HCl 50 mg 09/26/21 01:30 Tramadol 50 Mg Tab PO Q6H PRN Pain, Moderate (4-6) Warfarin Sodium 7.5 mg 09/29/21 17:00 09/29/21 16:28 Warfarin 7.5 Mg Tab PO 09/30/21 16:59 7.5 mg DAILY@1700 NR Administration Nutrition/Malnutrition Assess - Dietary Evaluation Nutrition/Malnutrition Findings: Nutrition Notes Start: 09/29/21 16:14 Freq: Status: Active Protocol: Document 09/29/21 16:14 JAIME (Rec: 09/29/21 16:34 JAIME [email or web address]) Nutrition Notes Initial or Follow up Assessment Other Pertinent Diagnosis L-LE Swelling, Pulmonary Emboli, EtOH Abuse. Current Diet Regular Diet (since L 09/27). Labs/Tests 09/29: BUN 3, Crea 0.6. Pertinent Medications 09/29: Coumadin 7.5mg, others nutritionally unremarkable. 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 No reports available on Pt's PO intake of meals at the time , will assess at F/U. Pt is on Room Air, O2 saturation @ 98%, according to Physical Assessment History notes, Pt has missing teeth, according to Physical Assessment History notes, Pt presents L-LE Pitting Edema 2+, according to Physical Assessment History notes, Discharge pending on Wafarine bridge with INR goal of 2-3, according to Progress notes. Percent of energy/protein needs met: Prescribed Regular Diet provides for energy/protein needs (2,289 Kcal/89 g) during LOS. Burn Absent Trauma Absent GI Symptoms None Food Allergy No Skin Integrity/Comment L-LE Pitting Edema 2+. Minimum of two criteria No Fluid Accumulation Moderate to Severe (severe) Reduced Lumber Straightened Strength N/A (non-severe) Protein-Calorie Malnutrition N\A #1 Nutrition Diagnosis No nutrition diagnosis at this time Is patient on ventilator? No Is Patient Ambulatory and/or Out of Bed Yes REE-([facility]ambulatory/OOB) [ 9.050 NUTR.MSJOOB] Kcal/Kg value to use for calculation 23 Approximate Energy Requirements Using 1838 kcal/Kg Calculation Used for Recommendations Kcal/kg Additional Notes Protein: 0.8-1 g/Kg ABW; 64-80 g/day. Fluids: 1 ml/Kcal, or as per MD. Nutrition Intervention Change Diet Order: Continue Regular Diet as tolerated. Follow-Up By: 10/06/21 Additional Comments Continue monitoring food tolerance, %PO intake of meals , and BM.
[2021-09-30] MEDS: NICOTINE 14 MG/24 HR PATCH TD SCH (10:09)
[2021-09-30] MEDS: PANTOPRAZOLE 40 MG TAB PO SCH (10:09)
[2021-09-30] MEDS: HEPARIN/ 0.45% NACL DRIP 25,000 UNIT/500 ML BAG IV SCH (10:10)
[2021-09-30] MEDS ORDERED: WARFARIN 7.5 MG TAB PO NR (17:00)
[2021-10-01] MEDS: HEPARIN/ 0.45% NACL DRIP 25,000 UNIT/500 ML BAG IV SCH (00:48)
[2021-10-01 04:27] LABS: INR 1.33 (0.87-1.13)
[2021-10-01] MEDS: NICOTINE 14 MG/24 HR PATCH TD SCH (10:35)
[2021-10-01] MEDS: PANTOPRAZOLE 40 MG TAB PO SCH (10:35)
--- NOTE | 2021-10-01 12:06 | Progress Note ---
Assessment and Plan Assessment and plan: #Newly diagnosed pulmonary emboli #Left leg swelling PE Visualized on CT angio chest. continues to be hemodynamically stable and on room air - continue heparin gtt while bridging with warfarin (INR goal 2-3). Pharmacy consulted for management. Current INR: 1.33 - LE duplex negative for DVT #Acute coronary syndromeruled out Unremarkable troponins TTE unremarkable with no sign of PFO #Alcohol dependence - Counseled patient on the importance of ETOH cessation. Assess patient's current ETOH consumption. Assisted with trying to arrange resources for patient to adequately work towards ETOH cessation. Patient expresses understanding. Continue with CIWA protocol, thiamine, folic acid, and banana bag. -Time: +15 mins #Tobacco dependence #Tobacco/Smoking cessation counseling - Counseled patient about the importance of smoking cessation and the possible sequelae as a result of continued tobacco consumption. The patient expresses understanding. Continue nicotine patch. -Time: +15 mins #Advanced care planning -Disease education conducted, care plan discussed, diagnoses discussed, prognosis discussed, and patient acknowledges understanding with care plan -Time: +30 min #Discharge planning - pending warfarin bridge with INR goal of 2-3 History Interval history: No acute events overnight. Patient has no complaints at this time. He was updated about current care plan. Hospitalist Physical - Physical exam Narrative exam: GENERAL: Thin male. In no acute distress. HEENT: Poor dentition. NECK: Supple. CHEST/LUNGS: CTAB on room air HEART/CARDIOVASCULAR: RRR. No murmur, rubs or gallops appreciated. ABDOMEN: +BS. NT/ND. SKIN: No rashes noted. NEURO: No focal motor deficit. Follows all commands. Walking around the room MUSCULOSKELETAL: No joint effusion EXTREMITIES: No cyanosis, clubbing. BLE edema L>R improving. PSYCH: Cooperative. - Constitutional Vitals: Temp Pulse Resp BP Pulse Ox 97.7 F 56 L 16 147/80 99 10/01/21 08:13 10/01/21 10:00 10/01/21 03:45 10/01/21 08:13 10/01/21 10:00 General appearance: Present: no acute distress, severe distress, well-nourished HEART Score - HEART Score EKG: Non-specific Age: 45-65 Risk factors: 1-2 risk factors Troponin: Troponin T < 0.010 ng/mL (0.00-0.029) 09/26/21 06:04 Troponin: < normal limit - Critical Actions Critical Actions: 0-3 pts:0.9-1.7%risk of adverse cardiac event.Candidate for discharge Results - Labs CBC & Chem 7: 09/30/21 05:38 09/27/21 04:00 Labs: Laboratory Last Values WBC 6.0 K/mm3 (4.5-11.0) 09/27/21 04:00 RBC 4.08 M/mm3 (3.65-5.03) 09/27/21 04:00 Hgb 12.6 gm/dl (11.8-15.2) 09/30/21 05:38 Hct 37.2 % (35.5-45.6) 09/30/21 05:38 MCV 98 fl (84-94) H 09/27/21 04:00 MCH 33 pg (28-32) H 09/27/21 04:00 MCHC 34 % (32-34) 09/27/21 04:00 RDW 14.7 % (13.2-15.2) 09/27/21 04:00 Plt Count 342 K/mm3 (140-440) 09/30/21 05:38 Lymph % (Auto) 26.1 % (13.4-35.0) 09/27/21 04:00 [place] % (Auto) 8.8 % (0.0-7.3) H 09/27/21 04:00 Eos % (Auto) 2.3 % (0.0-4.3) 09/27/21 04:00 Baso % (Auto) 2.0 % (0.0-1.8) H 09/27/21 04:00 Lymph # (Auto) 1.6 K/mm3 (1.2-5.4) 09/27/21 04:00 [place] # (Auto) 0.5 K/mm3 (0.0-0.8) 09/27/21 04:00 Eos # (Auto) 0.1 K/mm3 (0.0-0.4) 09/27/21 04:00 Baso # (Auto) 0.1 K/mm3 (0.0-0.1) 09/27/21 04:00 Add Manual Diff Complete 09/26/21 06:04 Seg Neutrophils % 60.8 % (40.0-70.0) 09/27/21 04:00 Seg Neutrophils # 3.6 K/mm3 (1.8-7.7) 09/27/21 04:00 PT 18.1 Sec. (12.2-14.9) H 10/01/21 03:45 INR 1.33 (0.87-1.13) H 10/01/21 03:45 APTT 75.6 Sec. (24.2-36.6) H* 09/26/21 06:04 D-Dimer 1433.65 ng/mlDDU (0-234) H 09/25/21 18:42 Heparin Anti-Xa Level 0.50 U.I./ml (0.3-0.7) 10/01/21 00:19 Sodium 138 mmol/L (137-145) 09/27/21 04:00 Potassium 4.3 mmol/L (3.6-5.0) 09/27/21 04:00 Chloride 101.3 mmol/L (98-107) 09/27/21 04:00 Carbon Dioxide 25 mmol/L (22-30) 09/27/21 04:00 Anion Gap 16 mmol/L 09/27/21 04:00 BUN 3 mg/dL (9-20) L 09/27/21 04:00 Creatinine 0.6 mg/dL (0.8-1.3) L 09/27/21 04:00 Estimated GFR > 60 ml/min 09/27/21 04:00 BUN/Creatinine Ratio 5 % 09/27/21 04:00 Glucose 98 mg/dL (75-100) 09/27/21 04:00 Calcium 9.0 mg/dL (8.4-10.2) 09/27/21 04:00 Magnesium 2.20 mg/dL (1.7-2.3) 09/25/21 18:42 Total Bilirubin 0.70 mg/dL (0.1-1.2) 09/25/21 18:42 AST 12 units/L (5-40) 09/25/21 18:42 ALT 6 units/L (7-56) L 09/25/21 18:42 Alkaline Phosphatase 73 units/L (35-129) 09/25/21 18:42 Total Creatine Kinase 54 units/L (55-170) L 09/25/21 18:42 Troponin T < 0.010 ng/mL (0.00-0.029) 09/26/21 06:04 NT-Pro-B Natriuret Pep 339.5 pg/mL (0-900) 09/25/21 19:26 Total Protein 7.5 g/dL (6.3-8.2) 09/25/21 18:42 Albumin 3.4 g/dL (3.9-5) L 09/25/21 18:42 Albumin/Globulin Ratio 0.8 % 09/25/21 18:42 Salicylates < 0.3 mg/dL (2.8-20.0) L 09/25/21 18:42 Acetaminophen 5.0 ug/mL (10.0-30.0) L 09/25/21 18:42 Plasma/Serum Alcohol < 0.01 % (0-0.07) 09/25/21 18:42 [place]/IV: Voiding Method Toilet Active Medications - Current Medications Current Medications: Generic Name Dose Route Start Last Admin Trade Name Freq PRN Reason Stop Dose Admin Acetaminophen 650 mg 09/26/21 01:30 09/26/21 20:44 Acetaminophen 325 Mg Tab PO 650 mg Q6H PRN Administration Pain, Mild (1-3) Atorvastatin Calcium 40 mg 09/26/21 22:00 09/30/21 21:30 Atorvastatin 40 Mg Tab PO 40 mg QHS [place] Administration Chlordiazepoxide HCl 50 mg 09/25/21 18:36 Chlordiazepoxide 25 Mg Cap PO Q1HR PRN CIWA-Ar 8-15 Chlordiazepoxide HCl 100 mg 09/25/21 18:36 Chlordiazepoxide 25 Mg Cap PO Q1HR PRN CIWA-Ar 16-25 Heparin Sodium (Porcine) 3,300 unit 09/26/21 01:30 09/29/21 19:09 Heparin 10,000 Units/10 Ml Vial 40 unit/kg (3300 unit) 3,300 unit IV Administration Q6H PRN Anti-Xa Assay < 0.1 units/ml Heparin Sodium/Sodium Chloride 25,000 unit in 500 mls @ 24 mls/hr 09/26/21 03:00 10/01/21 00:54 Heparin/ 0.45% Nacl-25,000 Unit/500 Ml IV 1,650 units/hr TITR [place] 33 mls/hr Titration Protocol 1,200 UNITS/HR Lorazepam 2 mg 09/25/21 18:36 09/26/21 20:44 Lorazepam 2 Mg Tab PO 2 mg Q1HR PRN Administration CIWA-Ar 8-15 Lorazepam 4 mg 09/25/21 18:36 Lorazepam 2 Mg Tab PO Q1HR PRN CIWA-Ar 16-25 Morphine Sulfate 2 mg 09/26/21 01:30 Morphine 4 Mg/1 Ml Inj IV Q5MIN PRN Chest Pain unrelieved by NTG Nicotine 14 mg 09/26/21 10:00 10/01/21 10:35 Nicotine 14 Mg/24 Hr Patch TD 14 mg QDAY [place] Administration Nitroglycerin 0.4 mg 09/26/21 01:30 Nitroglycerin 0.4 Mg Tab Subl SL Q5M PRN Chest Pain Pantoprazole Sodium 40 mg 09/26/21 10:00 10/01/21 10:35 Pantoprazole 40 Mg Tab PO 40 mg QDAY [place] Administration Sodium Chloride 10 ml 09/26/21 01:30 09/29/21 21:20 Sodium Chloride 0.9% 10 Ml Flush Syringe IV 10 ml PRN PRN Administration LINE FLUSH Tramadol HCl 50 mg 09/26/21 01:30 Tramadol 50 Mg Tab PO Q6H PRN Pain, Moderate (4-6) Warfarin Sodium 7.5 mg 10/01/21 17:00 Warfarin 7.5 Mg Tab PO 10/02/21 16:59 DAILY@1700 NR Nutrition/Malnutrition Assess - Dietary Evaluation Nutrition/Malnutrition Findings: Nutrition Notes Start: 09/29/21 16:14 Freq: Status: Active Protocol: Document 09/29/21 16:14 JAIME (Rec: 09/29/21 16:34 JAIME [id number]) Nutrition Notes Initial or Follow up Assessment Other Pertinent Diagnosis L-LE Swelling, Pulmonary Emboli, EtOH Abuse. Current Diet Regular Diet (since L 09/27). Labs/Tests 09/29: BUN 3, Crea 0.6. Pertinent Medications 09/29: Coumadin 7.5mg, others nutritionally unremarkable. 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 No reports available on Pt's PO intake of meals at the time , will assess at F/U. Pt is on Room Air, O2 saturation @ 98%, according to Physical Assessment History notes, Pt has missing teeth, according to Physical Assessment History notes, Pt presents L-LE Pitting Edema 2+, according to Physical Assessment History notes, Discharge pending on Wafarine bridge with INR goal of 2-3, according to Progress notes. Percent of energy/protein needs met: Prescribed Regular Diet provides for energy/protein needs (2,289 Kcal/89 g) during LOS. Burn Absent Trauma Absent GI Symptoms None Food Allergy No Skin Integrity/Comment L-LE Pitting Edema 2+. Minimum of two criteria No Fluid Accumulation Moderate to Severe (severe) Reduced Bagger Meat Strength N/A (non-severe) Protein-Calorie Malnutrition N\A #1 Nutrition Diagnosis No nutrition diagnosis at this time Is patient on ventilator? No Is Patient Ambulatory and/or Out of Bed Yes REE-([place]-ambulatory/OOB) [ 2038.050 NUTR.MSJOOB] Kcal/Kg value to use for calculation 23 Approximate Energy Requirements Using 1838 kcal/Kg Calculation Used for Recommendations Kcal/kg Additional Notes Protein: 0.8-1 g/Kg ABW; 64-80 g/day. Fluids: 1 ml/Kcal, or as per MD. Nutrition Intervention Change Diet Order: Continue Regular Diet as tolerated. Follow-Up By: 10/06/21 Additional Comments Continue monitoring food tolerance, %PO intake of meals , and BM.
[2021-10-01] MEDS ORDERED: WARFARIN 7.5 MG TAB PO NR (17:00)
[2021-10-02 04:19] LABS: Hematocrit 36.6 % (35.5-45.6)
[2021-10-02 04:27] LABS: INR 1.47 (0.87-1.13)
[2021-10-02] MEDS: HEPARIN/ 0.45% NACL DRIP 25,000 UNIT/500 ML BAG IV SCH ×2 (08:59→23:31)
[2021-10-02] MEDS: PANTOPRAZOLE 40 MG TAB PO SCH (09:01)
[2021-10-02] MEDS: NICOTINE 14 MG/24 HR PATCH TD SCH (09:01)
--- NOTE | 2021-10-02 11:36 | Progress Note ---
Assessment and Plan Assessment and plan: #Newly diagnosed pulmonary emboli #Left leg swelling PE Visualized on CT angio chest. continues to be hemodynamically stable and on room air - continue heparin gtt while bridging with warfarin (INR goal 2-3). Pharmacy consulted for management. Current INR: 1.47 - LE duplex negative for DVT #Acute coronary syndromeruled out Unremarkable troponins TTE unremarkable with no sign of PFO #Alcohol dependence - Counseled patient on the importance of ETOH cessation. Assess patient's current ETOH consumption. Assisted with trying to arrange resources for patient to adequately work towards ETOH cessation. Patient expresses understanding. Continue with CIWA protocol, thiamine, folic acid, and banana bag. -Time: +15 mins #Tobacco dependence #Tobacco/Smoking cessation counseling - Counseled patient about the importance of smoking cessation and the possible sequelae as a result of continued tobacco consumption. The patient expresses understanding. Continue nicotine patch. -Time: +15 mins #Advanced care planning -Disease education conducted, care plan discussed, diagnoses discussed, prognosis discussed, and patient acknowledges understanding with care plan -Time: +30 min #Discharge planning - pending warfarin bridge with INR goal of 2-3 History Interval history: No acute events overnight. Patient has no complaints at this time. He was updated about current care plan. Hospitalist Physical - Physical exam Narrative exam: GENERAL: Thin male. In no acute distress. HEENT: Poor dentition. NECK: Supple. CHEST/LUNGS: CTAB on room air HEART/CARDIOVASCULAR: RRR. No murmur, rubs or gallops appreciated. ABDOMEN: +BS. NT/ND. SKIN: No rashes noted. NEURO: No focal motor deficit. Follows all commands. Walking around the room MUSCULOSKELETAL: No joint effusion EXTREMITIES: No cyanosis, clubbing. BLE edema L>R improving. PSYCH: Cooperative. - Constitutional Vitals: Temp Pulse Resp BP Pulse Ox 98.1 F 58 L 16 118/72 97 10/02/21 05:06 10/02/21 05:06 10/02/21 05:06 10/02/21 05:06 10/02/21 05:06 General appearance: Present: no acute distress, severe distress, well-nourished HEART Score - HEART Score EKG: Non-specific Age: 45-65 Risk factors: 1-2 risk factors Troponin: Troponin T < 0.010 ng/mL (0.00-0.029) 09/26/21 06:04 Troponin: < normal limit - Critical Actions Critical Actions: 0-3 pts:0.9-1.7%risk of adverse cardiac event.Candidate for discharge Results - Labs CBC & Chem 7: 10/02/21 03:57 09/27/21 04:00 Labs: Laboratory Last Values WBC 6.0 K/mm3 (4.5-11.0) 09/27/21 04:00 RBC 4.08 M/mm3 (3.65-5.03) 09/27/21 04:00 Hgb 12.0 gm/dl (11.8-15.2) 10/02/21 03:57 Hct 36.6 % (35.5-45.6) 10/02/21 03:57 MCV 98 fl (84-94) H 09/27/21 04:00 MCH 33 pg (28-32) H 09/27/21 04:00 MCHC 34 % (32-34) 09/27/21 04:00 RDW 14.7 % (13.2-15.2) 09/27/21 04:00 Plt Count 353 K/mm3 (140-440) 10/02/21 03:57 Lymph % (Auto) 26.1 % (13.4-35.0) 09/27/21 04:00 [place] % (Auto) 8.8 % (0.0-7.3) H 09/27/21 04:00 Eos % (Auto) 2.3 % (0.0-4.3) 09/27/21 04:00 Baso % (Auto) 2.0 % (0.0-1.8) H 09/27/21 04:00 Lymph # (Auto) 1.6 K/mm3 (1.2-5.4) 09/27/21 04:00 [place] # (Auto) 0.5 K/mm3 (0.0-0.8) 09/27/21 04:00 Eos # (Auto) 0.1 K/mm3 (0.0-0.4) 09/27/21 04:00 Baso # (Auto) 0.1 K/mm3 (0.0-0.1) 09/27/21 04:00 Add Manual Diff Complete 09/26/21 06:04 Seg Neutrophils % 60.8 % (40.0-70.0) 09/27/21 04:00 Seg Neutrophils # 3.6 K/mm3 (1.8-7.7) 09/27/21 04:00 PT 19.6 Sec. (12.2-14.9) H 10/02/21 03:57 INR 1.47 (0.87-1.13) H 10/02/21 03:57 APTT 75.6 Sec. (24.2-36.6) H* 09/26/21 06:04 D-Dimer 1433.65 ng/mlDDU (0-234) H 09/25/21 18:42 Heparin Anti-Xa Level 0.50 U.I./ml (0.3-0.7) 10/02/21 09:02 Sodium 138 mmol/L (137-145) 09/27/21 04:00 Potassium 4.3 mmol/L (3.6-5.0) 09/27/21 04:00 Chloride 101.3 mmol/L (98-107) 09/27/21 04:00 Carbon Dioxide 25 mmol/L (22-30) 09/27/21 04:00 Anion Gap 16 mmol/L 09/27/21 04:00 BUN 3 mg/dL (9-20) L 09/27/21 04:00 Creatinine 0.6 mg/dL (0.8-1.3) L 09/27/21 04:00 Estimated GFR > 60 ml/min 09/27/21 04:00 BUN/Creatinine Ratio 5 % 09/27/21 04:00 Glucose 98 mg/dL (75-100) 09/27/21 04:00 Calcium 9.0 mg/dL (8.4-10.2) 09/27/21 04:00 Magnesium 2.20 mg/dL (1.7-2.3) 09/25/21 18:42 Total Bilirubin 0.70 mg/dL (0.1-1.2) 09/25/21 18:42 AST 12 units/L (5-40) 09/25/21 18:42 ALT 6 units/L (7-56) L 09/25/21 18:42 Alkaline Phosphatase 73 units/L (35-129) 09/25/21 18:42 Total Creatine Kinase 54 units/L (55-170) L 09/25/21 18:42 Troponin T < 0.010 ng/mL (0.00-0.029) 09/26/21 06:04 NT-Pro-B Natriuret Pep 339.5 pg/mL (0-900) 09/25/21 19:26 Total Protein 7.5 g/dL (6.3-8.2) 09/25/21 18:42 Albumin 3.4 g/dL (3.9-5) L 09/25/21 18:42 Albumin/Globulin Ratio 0.8 % 09/25/21 18:42 Salicylates < 0.3 mg/dL (2.8-20.0) L 09/25/21 18:42 Acetaminophen 5.0 ug/mL (10.0-30.0) L 09/25/21 18:42 Plasma/Serum Alcohol < 0.01 % (0-0.07) 09/25/21 18:42 [place]/IV: Voiding Method Toilet Active Medications - Current Medications Current Medications: Generic Name Dose Route Start Last Admin Trade Name Freq PRN Reason Stop Dose Admin Acetaminophen 650 mg 09/26/21 01:30 09/26/21 20:44 Acetaminophen 325 Mg Tab PO 650 mg Q6H PRN Administration Pain, Mild (1-3) Atorvastatin Calcium 40 mg 09/26/21 22:00 10/01/21 21:11 Atorvastatin 40 Mg Tab PO 40 mg QHS [place] Administration Chlordiazepoxide HCl 50 mg 09/25/21 18:36 Chlordiazepoxide 25 Mg Cap PO Q1HR PRN CIWA-Ar 8-15 Chlordiazepoxide HCl 100 mg 09/25/21 18:36 Chlordiazepoxide 25 Mg Cap PO Q1HR PRN CIWA-Ar 16-25 Heparin Sodium (Porcine) 3,300 unit 09/26/21 01:30 09/29/21 19:09 Heparin 10,000 Units/10 Ml Vial 40 unit/kg (3300 unit) 3,300 unit IV Administration Q6H PRN Anti-Xa Assay < 0.1 units/ml Heparin Sodium/Sodium Chloride 25,000 unit in 500 mls @ 24 mls/hr 09/26/21 03:00 10/02/21 08:59 Heparin/ 0.45% Nacl-25,000 Unit/500 Ml IV 1,700 units/hr TITR [place] 34 mls/hr Administration Protocol 1,200 UNITS/HR Lorazepam 2 mg 09/25/21 18:36 09/26/21 20:44 Lorazepam 2 Mg Tab PO 2 mg Q1HR PRN Administration CIWA-Ar 8-15 Lorazepam 4 mg 09/25/21 18:36 Lorazepam 2 Mg Tab PO Q1HR PRN CIWA-Ar 16-25 Morphine Sulfate 2 mg 09/26/21 01:30 Morphine 4 Mg/1 Ml Inj IV Q5MIN PRN Chest Pain unrelieved by NTG Nicotine 14 mg 09/26/21 10:00 10/02/21 09:01 Nicotine 14 Mg/24 Hr Patch TD 14 mg QDAY [place] Administration Nitroglycerin 0.4 mg 09/26/21 01:30 Nitroglycerin 0.4 Mg Tab Subl SL Q5M PRN Chest Pain Pantoprazole Sodium 40 mg 09/26/21 10:00 10/02/21 09:01 Pantoprazole 40 Mg Tab PO 40 mg QDAY [place] Administration Sodium Chloride 10 ml 09/26/21 01:30 10/01/21 21:11 Sodium Chloride 0.9% 10 Ml Flush Syringe IV 10 ml PRN PRN Administration LINE FLUSH Tramadol HCl 50 mg 09/26/21 01:30 Tramadol 50 Mg Tab PO Q6H PRN Pain, Moderate (4-6) Warfarin Sodium 7.5 mg 10/02/21 17:00 Warfarin 7.5 Mg Tab PO 10/03/21 16:59 DAILY@1700 NR Nutrition/Malnutrition Assess - Dietary Evaluation Nutrition/Malnutrition Findings: Nutrition Notes Start: 09/29/21 16:14 Freq: Status: Active Protocol: Document 10/01/21 17:16 JAIME (Rec: 10/01/21 17:30 JAIME [id number]) Nutrition Notes Initial or Follow up Brief Note Other Pertinent Diagnosis L-LE Swelling, Pulmonary Emboli, EtOH Abuse. Current Diet Regular Diet (since L 09/27), D Suppl (since L 10/01). Height 5 ft 8 in Weight 64.9 kg [place] Body Weight (kg) 70.00 BMI 21.7 Weight change and time frame Discrepancy of 15.0 Kg body weight loss reported in 2 days . Weight Status Appropriate Subjective/Other Information RD consult for dietary supplementation assessment. No reports available on Pt's PO intake of meals at the time , will assess at F/U. I will support dietary supplementation for possible poor or insufficient PO intake of meals during LOS. Pt is on Room Air, O2 saturation @ 99%, according to Physical Assessment History notes. Percent of energy/protein needs met: Prescribed Regular Diet provides for energy/protein needs (2,289 Kcal/89 g) during LOS; additionally, Dietary Supplements will compensate for possible poor or insufficient PO intake of meals with 1,050 Kcal and 60 g of protein. #1 Nutrition Diagnosis Predicted suboptimal energy intake Etiology Uncertain, As Evidenced by Signs and Symptoms No reports available on Pt's PO intake of meals at the time , will assess at F/U. Is patient on ventilator? No Is Patient Ambulatory and/or Out of Bed Yes REE-([facility]-ambulatory/OOB) [ 1844.050 NUTR.[id number]] Calculation Used for Recommendations [facility] Additional Notes Protein: 0.8-1 g/Kg ABW; 64-80 g/day. Fluids: 1 ml/Kcal, or as per MD. Nutrition Intervention Change Diet Order: Continue Regular Diet as tolerated. Add Supplement/Snack (indicate name/kcal Start 8 fl oz Ensure Enlive; /protein ) TID Provides kCal: 1,050 Provides Protein (gm) 60 Goal #1 Compensate, through dietary supplementation, for possible poor or insufficient PO intake of meals during LOS. Goal #2 Adjust the dietary intervention to better serve Pt's needs and clinical conditions during LOS. Follow-Up By: 10/08/21 Additional Comments Continue monitoring food tolerance, %PO intake of meals , dietary supplements, and BM.
[2021-10-02] MEDS ORDERED: WARFARIN 7.5 MG TAB PO NR (17:00)
[2021-10-03 06:20] LABS: INR 1.76 (0.87-1.13)
[2021-10-03] MEDS: PANTOPRAZOLE 40 MG TAB PO SCH (09:41)
[2021-10-03] MEDS: NICOTINE 14 MG/24 HR PATCH TD SCH (09:41)
--- NOTE | 2021-10-03 11:29 | Progress Note ---
Assessment and Plan Assessment and plan: #Newly diagnosed pulmonary emboli #Left leg swelling PE Visualized on CT angio chest. continues to be hemodynamically stable and on room air - continue heparin gtt while bridging with warfarin (INR goal 2-3). Pharmacy consulted for management. Current INR: 1.76 - LE duplex negative for DVT #Acute coronary syndromeruled out Unremarkable troponins TTE unremarkable with no sign of PFO #Alcohol dependence - Counseled patient on the importance of ETOH cessation. Assess patient's current ETOH consumption. Assisted with trying to arrange resources for patient to adequately work towards ETOH cessation. Patient expresses understanding. Continue with CIWA protocol, thiamine, folic acid, and banana bag. -Time: +15 mins #Tobacco dependence #Tobacco/Smoking cessation counseling - Counseled patient about the importance of smoking cessation and the possible sequelae as a result of continued tobacco consumption. The patient expresses understanding. Continue nicotine patch. -Time: +15 mins #Advanced care planning -Disease education conducted, care plan discussed, diagnoses discussed, prognosis discussed, and patient acknowledges understanding with care plan -Time: +30 min #Discharge planning - pending warfarin bridge with INR goal of 2-3 History Interval history: No acute events overnight. Patient has no complaints at this time. He denies bleeding from his mucus membranes and shortness of breath. Hospitalist Physical - Physical exam Narrative exam: GENERAL: Thin male. In no acute distress. HEENT: Poor dentition. NECK: Supple. CHEST/LUNGS: CTAB on room air HEART/CARDIOVASCULAR: RRR. No murmur, rubs or gallops appreciated. ABDOMEN: +BS. NT/ND. SKIN: No rashes noted. NEURO: No focal motor deficit. Follows all commands. Walking around the room MUSCULOSKELETAL: No joint effusion EXTREMITIES: No cyanosis, clubbing. BLE edema L>R improving. PSYCH: Cooperative. - Constitutional Vitals: Temp Pulse Resp BP Pulse Ox 98.4 F 97 H 18 124/80 81 L 10/03/21 08:52 10/03/21 08:52 10/03/21 08:52 10/03/21 08:52 10/03/21 08:52 General appearance: Present: no acute distress, severe distress, well-nourished HEART Score - HEART Score EKG: Non-specific Age: 45-65 Risk factors: 1-2 risk factors Troponin: Troponin T < 0.010 ng/mL (0.00-0.029) 09/26/21 06:04 Troponin: < normal limit - Critical Actions Critical Actions: 0-3 pts:0.9-1.7%risk of adverse cardiac event.Candidate for discharge Results - Labs CBC & Chem 7: 10/02/21 03:57 09/27/21 04:00 Labs: Laboratory Last Values WBC 6.0 K/mm3 (4.5-11.0) 09/27/21 04:00 RBC 4.08 M/mm3 (3.65-5.03) 09/27/21 04:00 Hgb 12.0 gm/dl (11.8-15.2) 10/02/21 03:57 Hct 36.6 % (35.5-45.6) 10/02/21 03:57 MCV 98 fl (84-94) H 09/27/21 04:00 MCH 33 pg (28-32) H 09/27/21 04:00 MCHC 34 % (32-34) 09/27/21 04:00 RDW 14.7 % (13.2-15.2) 09/27/21 04:00 Plt Count 353 K/mm3 (140-440) 10/02/21 03:57 Lymph % (Auto) 26.1 % (13.4-35.0) 09/27/21 04:00 [place] % (Auto) 8.8 % (0.0-7.3) H 09/27/21 04:00 Eos % (Auto) 2.3 % (0.0-4.3) 09/27/21 04:00 Baso % (Auto) 2.0 % (0.0-1.8) H 09/27/21 04:00 Lymph # (Auto) 1.6 K/mm3 (1.2-5.4) 09/27/21 04:00 [place] # (Auto) 0.5 K/mm3 (0.0-0.8) 09/27/21 04:00 Eos # (Auto) 0.1 K/mm3 (0.0-0.4) 09/27/21 04:00 Baso # (Auto) 0.1 K/mm3 (0.0-0.1) 09/27/21 04:00 Add Manual Diff Complete 09/26/21 06:04 Seg Neutrophils % 60.8 % (40.0-70.0) 09/27/21 04:00 Seg Neutrophils # 3.6 K/mm3 (1.8-7.7) 09/27/21 04:00 PT 22.7 Sec. (12.2-14.9) H 10/03/21 05:42 INR 1.76 (0.87-1.13) H 10/03/21 05:42 APTT 75.6 Sec. (24.2-36.6) H* 09/26/21 06:04 D-Dimer 1433.65 ng/mlDDU (0-234) H 09/25/21 18:42 Heparin Anti-Xa Level 0.23 U.I./ml (0.3-0.7) L 10/03/21 10:21 Sodium 138 mmol/L (137-145) 09/27/21 04:00 Potassium 4.3 mmol/L (3.6-5.0) 09/27/21 04:00 Chloride 101.3 mmol/L (98-107) 09/27/21 04:00 Carbon Dioxide 25 mmol/L (22-30) 09/27/21 04:00 Anion Gap 16 mmol/L 09/27/21 04:00 BUN 3 mg/dL (9-20) L 09/27/21 04:00 Creatinine 0.6 mg/dL (0.8-1.3) L 09/27/21 04:00 Estimated GFR > 60 ml/min 09/27/21 04:00 BUN/Creatinine Ratio 5 % 09/27/21 04:00 Glucose 98 mg/dL (75-100) 09/27/21 04:00 Calcium 9.0 mg/dL (8.4-10.2) 09/27/21 04:00 Magnesium 2.20 mg/dL (1.7-2.3) 09/25/21 18:42 Total Bilirubin 0.70 mg/dL (0.1-1.2) 09/25/21 18:42 AST 12 units/L (5-40) 09/25/21 18:42 ALT 6 units/L (7-56) L 09/25/21 18:42 Alkaline Phosphatase 73 units/L (35-129) 09/25/21 18:42 Total Creatine Kinase 54 units/L (55-170) L 09/25/21 18:42 Troponin T < 0.010 ng/mL (0.00-0.029) 09/26/21 06:04 NT-Pro-B Natriuret Pep 339.5 pg/mL (0-900) 09/25/21 19:26 Total Protein 7.5 g/dL (6.3-8.2) 09/25/21 18:42 Albumin 3.4 g/dL (3.9-5) L 09/25/21 18:42 Albumin/Globulin Ratio 0.8 % 09/25/21 18:42 Salicylates < 0.3 mg/dL (2.8-20.0) L 09/25/21 18:42 Acetaminophen 5.0 ug/mL (10.0-30.0) L 09/25/21 18:42 Plasma/Serum Alcohol < 0.01 % (0-0.07) 09/25/21 18:42 [place]/IV: Voiding Method Toilet Active Medications - Current Medications Current Medications: Generic Name Dose Route Start Last Admin Trade Name Freq PRN Reason Stop Dose Admin Acetaminophen 650 mg 09/26/21 01:30 09/26/21 20:44 Acetaminophen 325 Mg Tab PO 650 mg Q6H PRN Administration Pain, Mild (1-3) Atorvastatin Calcium 40 mg 09/26/21 22:00 10/02/21 21:26 Atorvastatin 40 Mg Tab PO 40 mg QHS [place] Administration Chlordiazepoxide HCl 50 mg 09/25/21 18:36 Chlordiazepoxide 25 Mg Cap PO Q1HR PRN CIWA-Ar 8-15 Chlordiazepoxide HCl 100 mg 09/25/21 18:36 Chlordiazepoxide 25 Mg Cap PO Q1HR PRN CIWA-Ar 16-25 Heparin Sodium (Porcine) 3,300 unit 09/26/21 01:30 09/29/21 19:09 Heparin 10,000 Units/10 Ml Vial 40 unit/kg (3300 unit) 3,300 unit IV Administration Q6H PRN Anti-Xa Assay < 0.1 units/ml Heparin Sodium/Sodium Chloride 25,000 unit in 500 mls @ 24 mls/hr 09/26/21 03:00 10/03/21 11:17 Heparin/ 0.45% Nacl-25,000 Unit/500 Ml IV 1,750 units/hr TITR [place] 35 mls/hr Titration Protocol 1,200 UNITS/HR Lorazepam 2 mg 09/25/21 18:36 09/26/21 20:44 Lorazepam 2 Mg Tab PO 2 mg Q1HR PRN Administration CIWA-Ar 8-15 Lorazepam 4 mg 09/25/21 18:36 Lorazepam 2 Mg Tab PO Q1HR PRN CIWA-Ar 16-25 Morphine Sulfate 2 mg 09/26/21 01:30 Morphine 4 Mg/1 Ml Inj IV Q5MIN PRN Chest Pain unrelieved by NTG Nicotine 14 mg 09/26/21 10:00 10/03/21 09:41 Nicotine 14 Mg/24 Hr Patch TD 14 mg QDAY [place] Administration Nitroglycerin 0.4 mg 09/26/21 01:30 Nitroglycerin 0.4 Mg Tab Subl SL Q5M PRN Chest Pain Pantoprazole Sodium 40 mg 09/26/21 10:00 10/03/21 09:41 Pantoprazole 40 Mg Tab PO 40 mg QDAY [place] Administration Sodium Chloride 10 ml 09/26/21 01:30 10/01/21 21:11 Sodium Chloride 0.9% 10 Ml Flush Syringe IV 10 ml PRN PRN Administration LINE FLUSH Tramadol HCl 50 mg 09/26/21 01:30 Tramadol 50 Mg Tab PO Q6H PRN Pain, Moderate (4-6) Warfarin Sodium 7.5 mg 10/02/21 17:00 10/02/21 16:43 Warfarin 7.5 Mg Tab PO 10/03/21 16:59 7.5 mg DAILY@1700 NR Administration Nutrition/Malnutrition Assess - Dietary Evaluation Nutrition/Malnutrition Findings: Nutrition Notes Start: 09/29/21 16:14 Freq: Status: Active Protocol: Document 10/01/21 17:16 JAIME (Rec: 10/01/21 17:30 JAIME [id number]) Nutrition Notes Initial or Follow up Brief Note Other Pertinent Diagnosis L-LE Swelling, Pulmonary Emboli, EtOH Abuse. Current Diet Regular Diet (since L 09/27), D Suppl (since L 10/01). Height 5 ft 8 in Weight 64.9 kg [place] Body Weight (kg) 70.00 BMI 21.7 Weight change and time frame Discrepancy of 15.0 Kg body weight loss reported in 2 days . Weight Status Appropriate Subjective/Other Information RD consult for dietary supplementation assessment. No reports available on Pt's PO intake of meals at the time , will assess at F/U. I will support dietary supplementation for possible poor or insufficient PO intake of meals during LOS. Pt is on Room Air, O2 saturation @ 99%, according to Physical Assessment History notes. Percent of energy/protein needs met: Prescribed Regular Diet provides for energy/protein needs (2,289 Kcal/89 g) during LOS; additionally, Dietary Supplements will compensate for possible poor or insufficient PO intake of meals with 1,050 Kcal and 60 g of protein. #1 Nutrition Diagnosis Predicted suboptimal energy intake Etiology Uncertain, As Evidenced by Signs and Symptoms No reports available on Pt's PO intake of meals at the time , will assess at F/U. Is patient on ventilator? No Is Patient Ambulatory and/or Out of Bed Yes REE-([facility]-ambulatory/OOB) [ 1844.050 NUTR.[id number]] Calculation Used for Recommendations [facility] Additional Notes Protein: 0.8-1 g/Kg ABW; 64-80 g/day. Fluids: 1 ml/Kcal, or as per MD. Nutrition Intervention Change Diet Order: Continue Regular Diet as tolerated. Add Supplement/Snack (indicate name/kcal Start 8 fl oz Ensure Enlive; /protein ) TID Provides kCal: 1,050 Provides Protein (gm) 60 Goal #1 Compensate, through dietary supplementation, for possible poor or insufficient PO intake of meals during LOS. Goal #2 Adjust the dietary intervention to better serve Pt's needs and clinical conditions during LOS. Follow-Up By: 10/08/21 Additional Comments Continue monitoring food tolerance, %PO intake of meals , dietary supplements, and BM.
[2021-10-03] MEDS: ACETAMINOPHEN 325 MG TAB PO PRN ×2 (12:58→20:15)
[2021-10-03] MEDS: HEPARIN/ 0.45% NACL DRIP 25,000 UNIT/500 ML BAG IV SCH (12:59)
[2021-10-03] MEDS ORDERED: WARFARIN 7.5 MG TAB PO NR (17:00)
[2021-10-04] MEDS: HEPARIN/ 0.45% NACL DRIP 25,000 UNIT/500 ML BAG IV SCH (02:28)
[2021-10-04] MEDS: ACETAMINOPHEN 325 MG TAB PO PRN ×2 (03:55→17:11)
--- NOTE | 2021-10-04 04:18 | XRay Report ---
CHEST 1 VIEW INDICATION / CLINICAL INFORMATION: coughing and increased temp 102.6. COMPARISON: Chest x-ray 09/25/2021 FINDINGS: SUPPORT DEVICES: None. HEART / MEDIASTINUM: Heart size is within normal limits. Mediastinal contour demonstrates no signific ant abnormality. LUNGS / PLEURA: Emphysematous changes are suggested. Since comparison study has been interval develop ment of airspace opacities left midlung, right cardiophrenic angle. Blunting of the left costophrenic angle has slightly increased. Previously demonstrated right costophrenic angle blunting has resolved . BONES: No significant osseous abnormality. ADDITIONAL FINDINGS: No significant additional findings. IMPRESSION: 1. Infectious process left midlung and left lung base suggested. Emphysematous changes are suggested. 2. Infectious process right cardiophrenic angle not excluded. Signer Name: Alfred Murillo II, MD Signed: 10/04/2021 4:14 AM Workstation Name: [id number]
[2021-10-04 06:52] LABS: Hematocrit 34.3 % (35.5-45.6); Hemoglobin 11.4 gm/dl (11.8-15.2)
[2021-10-04 06:58] LABS: INR 1.45 (0.87-1.13)
--- NOTE | 2021-10-04 09:08 | Cat Scan Report ---
CT CHEST WITHOUT CONTRAST INDICATION / CLINICAL INFORMATION: RULE OUT PNA. TECHNIQUE: Axial CT images were obtained through the chest without contrast. All CT scans at this location are p erformed using CT dose reduction for ALARA by means of automated exposure control. COMPARISON: CTA from 09/25/2021. Radiograph from 10/04/2021. FINDINGS: THORACIC AORTA: No significant abnormality. CORONARY ARTERY CALCIFICATION: Mild coronary artery calcifications. HEART: No significant abnormality. MEDIASTINUM / KADY: New mildly enlarged mediastinal lymph nodes, likely reactive. LUNGS/PLEURA: Slightly increased small left pleural effusion. Severe apical predominant emphysema aga in noted. There are new patchy areas of airspace consolidation within the posterior left upper and le ft lower lobes. Streaky opacities in the right lung base likely reflect volume loss. Right lung is ot herwise essentially clear. No pneumothorax. ADDITIONAL CHEST FINDINGS: None. UPPER ABDOMEN: No significant abnormality. SKELETAL SYSTEM: No significant abnormality. IMPRESSION: 1. Slight increase in small left pleural effusion with patchy airspace consolidation of the posterior left upper and left lower lobes, most consistent with pneumonia. 2. Severe emphysema. Other incidental findings as above. Signer Name: Shar Zavala MD Signed: 10/04/2021 9:03 AM Workstation Name: [id number]
--- NOTE | 2021-10-04 09:28 | Progress Note ---
Assessment and Plan Assessment and plan: #Sepsis #Pneumonia -TMax 102.6, HR>90 -CXR suggestive of PNA -CT of the chest non-contrast reviewed: Mild left-sided pleural effusion and left upper and lower lobe consolidation posteriorly -blood cultures & COVID-19 PCR ordered -continue levaquin -will monitor for clinical improvement #Newly diagnosed pulmonary emboli #Left leg swelling PE Visualized on CT angio chest. continues to be hemodynamically stable and on room air - continue heparin gtt while bridging with warfarin (INR goal 2-3). Pharmacy consulted for management. Current INR: 1.4 - LE duplex negative for DVT #Acute coronary syndromeruled out Unremarkable troponins TTE unremarkable with no sign of PFO #Alcohol dependence - Counseled patient on the importance of ETOH cessation. Assess patient's current ETOH consumption. Assisted with trying to arrange resources for patient to adequately work towards ETOH cessation. Patient expresses understanding. Continue with CIWA protocol, thiamine, folic acid, and banana bag. -Time: +15 mins #Tobacco dependence #Tobacco/Smoking cessation counseling - Counseled patient about the importance of smoking cessation and the possible sequelae as a result of continued tobacco consumption. The patient expresses understanding. Continue nicotine patch. -Time: +15 mins #Advanced care planning -Disease education conducted, care plan discussed, diagnoses discussed, prognosis discussed, and patient acknowledges understanding with care plan -Time: +30 min #Discharge planning - pending warfarin bridge with INR goal of 2-3 History Interval history: No acute events overnight. Patient has no complaints at this time. He does endorse cough and subjective fever overnight. He has not been vaccinated for COVID. He was updated about current care plan. Hospitalist Physical - Physical exam Narrative exam: GENERAL: Thin male. In no acute distress. HEENT: Poor dentition. NECK: Supple. CHEST/LUNGS: CTAB on room air HEART/CARDIOVASCULAR: RRR. No murmur, rubs or gallops appreciated. ABDOMEN: +BS. NT/ND. SKIN: No rashes noted. NEURO: No focal motor deficit. Follows all commands. Walking around the room MUSCULOSKELETAL: No joint effusion EXTREMITIES: No cyanosis, clubbing. BLE edema L>R improving. PSYCH: Cooperative. - Constitutional Vitals: Temp Pulse Resp BP Pulse Ox 97.9 F 94 H 16 103/63 93 10/04/21 08:02 10/04/21 08:02 10/04/21 08:02 10/04/21 08:02 10/04/21 08:02 General appearance: Present: no acute distress, severe distress, well-nourished HEART Score - HEART Score EKG: Non-specific Age: 45-65 Risk factors: 1-2 risk factors Troponin: Troponin T < 0.010 ng/mL (0.00-0.029) 09/26/21 06:04 Troponin: < normal limit - Critical Actions Critical Actions: 0-3 pts:0.9-1.7%risk of adverse cardiac event.Candidate for discharge Results - Labs CBC & Chem 7: 10/04/21 05:09 09/27/21 04:00 Labs: Laboratory Last Values WBC 6.0 K/mm3 (4.5-11.0) 09/27/21 04:00 RBC 4.08 M/mm3 (3.65-5.03) 09/27/21 04:00 Hgb 11.4 gm/dl (11.8-15.2) L 10/04/21 05:09 Hct 34.3 % (35.5-45.6) L 10/04/21 05:09 MCV 98 fl (84-94) H 09/27/21 04:00 MCH 33 pg (28-32) H 09/27/21 04:00 MCHC 34 % (32-34) 09/27/21 04:00 RDW 14.7 % (13.2-15.2) 09/27/21 04:00 Plt Count 248 K/mm3 (140-440) 10/04/21 05:09 Lymph % (Auto) 26.1 % (13.4-35.0) 09/27/21 04:00 Jenkins % (Auto) 8.8 % (0.0-7.3) H 09/27/21 04:00 Eos % (Auto) 2.3 % (0.0-4.3) 09/27/21 04:00 Baso % (Auto) 2.0 % (0.0-1.8) H 09/27/21 04:00 Lymph # (Auto) 1.6 K/mm3 (1.2-5.4) 09/27/21 04:00 Jenkins # (Auto) 0.5 K/mm3 (0.0-0.8) 09/27/21 04:00 Eos # (Auto) 0.1 K/mm3 (0.0-0.4) 09/27/21 04:00 Baso # (Auto) 0.1 K/mm3 (0.0-0.1) 09/27/21 04:00 Add Manual Diff Complete 09/26/21 06:04 Seg Neutrophils % 60.8 % (40.0-70.0) 09/27/21 04:00 Seg Neutrophils # 3.6 K/mm3 (1.8-7.7) 09/27/21 04:00 PT 19.4 Sec. (12.2-14.9) H 10/04/21 05:09 INR 1.45 (0.87-1.13) H 10/04/21 05:09 APTT 75.6 Sec. (24.2-36.6) H* 09/26/21 06:04 D-Dimer 1433.65 ng/mlDDU (0-234) H 09/25/21 18:42 Heparin Anti-Xa Level 0.20 U.I./ml (0.3-0.7) L 10/04/21 05:09 Sodium 138 mmol/L (137-145) 09/27/21 04:00 Potassium 4.3 mmol/L (3.6-5.0) 09/27/21 04:00 Chloride 101.3 mmol/L (98-107) 09/27/21 04:00 Carbon Dioxide 25 mmol/L (22-30) 09/27/21 04:00 Anion Gap 16 mmol/L 09/27/21 04:00 BUN 3 mg/dL (9-20) L 09/27/21 04:00 Creatinine 0.6 mg/dL (0.8-1.3) L 09/27/21 04:00 Estimated GFR > 60 ml/min 09/27/21 04:00 BUN/Creatinine Ratio 5 % 09/27/21 04:00 Glucose 98 mg/dL (75-100) 09/27/21 04:00 Calcium 9.0 mg/dL (8.4-10.2) 09/27/21 04:00 Magnesium 2.20 mg/dL (1.7-2.3) 09/25/21 18:42 Total Bilirubin 0.70 mg/dL (0.1-1.2) 09/25/21 18:42 AST 12 units/L (5-40) 09/25/21 18:42 ALT 6 units/L (7-56) L 09/25/21 18:42 Alkaline Phosphatase 73 units/L (35-129) 09/25/21 18:42 Total Creatine Kinase 54 units/L (55-170) L 09/25/21 18:42 Troponin T < 0.010 ng/mL (0.00-0.029) 09/26/21 06:04 NT-Pro-B Natriuret Pep 339.5 pg/mL (0-900) 09/25/21 19:26 Total Protein 7.5 g/dL (6.3-8.2) 09/25/21 18:42 Albumin 3.4 g/dL (3.9-5) L 09/25/21 18:42 Albumin/Globulin Ratio 0.8 % 09/25/21 18:42 Salicylates < 0.3 mg/dL (2.8-20.0) L 09/25/21 18:42 Acetaminophen 5.0 ug/mL (10.0-30.0) L 09/25/21 18:42 Plasma/Serum Alcohol < 0.01 % (0-0.07) 09/25/21 18:42 Newton/IV: Voiding Method Toilet Active Medications - Current Medications Current Medications: Generic Name Dose Route Start Last Admin Trade Name Freq PRN Reason Stop Dose Admin Acetaminophen 650 mg 09/26/21 01:30 10/04/21 03:55 Acetaminophen 325 Mg Tab PO 650 mg Q6H PRN Administration Pain, Mild (1-3) Atorvastatin Calcium 40 mg 09/26/21 22:00 10/03/21 22:04 Atorvastatin 40 Mg Tab PO 40 mg QHS W[place]ON Administration Chlordiazepoxide HCl 50 mg 09/25/21 18:36 Chlordiazepoxide 25 Mg Cap PO Q1HR PRN CIWA-Ar 8-15 Chlordiazepoxide HCl 100 mg 09/25/21 18:36 Chlordiazepoxide 25 Mg Cap PO Q1HR PRN CIWA-Ar 16-25 Heparin Sodium (Porcine) 3,300 unit 09/26/21 01:30 09/29/21 19:09 Heparin 10,000 Units/10 Ml Vial 40 unit/kg (3300 unit) 3,300 unit IV Administration Q6H PRN Anti-Xa Assay < 0.1 units/ml Heparin Sodium/Sodium Chloride 25,000 unit in 500 mls @ 24 mls/hr 09/26/21 03:00 10/04/21 07:30 Heparin/ 0.45% Nacl-25,000 Unit/500 Ml IV 1,850 units/hr TITR W[place] 37 mls/hr Titration Protocol 1,200 UNITS/HR Levofloxacin/Dextrose 750 mg in 150 mls @ 100 mls/hr 10/04/21 06:00 10/04/21 05:45 Levaquin 750mg/150ml IV 100 mls/hr Q24H [place] Administration Lorazepam 2 mg 09/25/21 18:36 09/26/21 20:44 Lorazepam 2 Mg Tab PO 2 mg Q1HR PRN Administration CIWA-Ar 8-15 Lorazepam 4 mg 09/25/21 18:36 Lorazepam 2 Mg Tab PO Q1HR PRN CIWA-Ar 16-25 Morphine Sulfate 2 mg 09/26/21 01:30 Morphine 4 Mg/1 Ml Inj IV Q5MIN PRN Chest Pain unrelieved by NTG Nicotine 14 mg 09/26/21 10:00 10/03/21 09:41 Nicotine 14 Mg/24 Hr Patch TD 14 mg QDAY W[place] Administration Nitroglycerin 0.4 mg 09/26/21 01:30 Nitroglycerin 0.4 Mg Tab Subl SL Q5M PRN Chest Pain Pantoprazole Sodium 40 mg 09/26/21 10:00 10/03/21 09:41 Pantoprazole 40 Mg Tab PO 40 mg QDAY [place] Administration Sodium Chloride 10 ml 09/26/21 01:30 10/01/21 21:11 Sodium Chloride 0.9% 10 Ml Flush Syringe IV 10 ml PRN PRN Administration LINE FLUSH Tramadol HCl 50 mg 09/26/21 01:30 Tramadol 50 Mg Tab PO Q6H PRN Pain, Moderate (4-6) Warfarin Sodium 10 mg 10/04/21 17:00 Warfarin 10 Mg Tab PO 10/05/21 16:59 DAILY@1700 NR Nutrition/Malnutrition Assess - Dietary Evaluation Nutrition/Malnutrition Findings: Nutrition Notes Start: 09/29/21 16:14 Freq: Status: Active Protocol: Document 10/01/21 17:16 JAIME (Rec: 10/01/21 17:30 JAIME [email or web address]) Nutrition Notes Initial or Follow up Brief Note Other Pertinent Diagnosis L-LE Swelling, Pulmonary Emboli, EtOH Abuse. Current Diet Regular Diet (since L 09/27), D Suppl (since L 10/01). Height 5 ft 8 in Weight 64.9 kg [place] Body Weight (kg) 70.00 BMI 21.7 Weight change and time frame Discrepancy of 15.0 Kg body weight loss reported in 2 days . Weight Status Appropriate Subjective/Other Information RD consult for dietary supplementation assessment. No reports available on Pt's PO intake of meals at the time , will assess at F/U. I will support dietary supplementation for possible poor or insufficient PO intake of meals during LOS. Pt is on Room Air, O2 saturation @ 99%, according to Physical Assessment History notes. Percent of energy/protein needs met: Prescribed Regular Diet provides for energy/protein needs (2,289 Kcal/89 g) during LOS; additionally, Dietary Supplements will compensate for possible poor or insufficient PO intake of meals with 1,050 Kcal and 60 g of protein. #1 Nutrition Diagnosis Predicted suboptimal energy intake Etiology Uncertain, As Evidenced by Signs and Symptoms No reports available on Pt's PO intake of meals at the time , will assess at F/U. Is patient on ventilator? No Is Patient Ambulatory and/or Out of Bed Yes REE-([facility]-ambulatory/OOB) [ 1844.050 [id number]] Calculation Used for Recommendations [facility] Additional Notes Protein: 0.8-1 g/Kg ABW; 64-80 g/day. Fluids: 1 ml/Kcal, or as per MD. Nutrition Intervention Change Diet Order: Continue Regular Diet as tolerated. Add Supplement/Snack (indicate name/kcal Start 8 fl oz Ensure Enlive; /protein ) TID Provides kCal: 1,050 Provides Protein (gm) 60 Goal #1 Compensate, through dietary supplementation, for possible poor or insufficient PO intake of meals during LOS. Goal #2 Adjust the dietary intervention to better serve Pt's needs and clinical conditions during LOS. Follow-Up By: 10/08/21 Additional Comments Continue monitoring food tolerance, %PO intake of meals , dietary supplements, and BM.
[2021-10-04] MEDS: PANTOPRAZOLE 40 MG TAB PO SCH (09:44)
[2021-10-04] MEDS: NICOTINE 14 MG/24 HR PATCH TD SCH (09:45)
[2021-10-04 10:14] LABS: Alanine Aminotransferase 26 units/L (7-56); Albumin 3.8 g/dL (3.9-5); BUN/Creatinine Ratio 14; Blood Urea Nitrogen 11 mg/dL (9-20); Calcium 8.6 mg/dL (8.4-10.2); Hemolysis Index 2
[2021-10-04 10:17] LABS: Hematocrit 34.8 % (35.5-45.6); Hemoglobin 11.8 gm/dl (11.8-15.2); Mean Corpuscular HGB Conc 34 % (32-34); Mean Corpuscular Volume 95 fl (84-94); Platelet Count 241 K/mm3 (140-440); Red Blood Count 3.66 M/mm3 (3.65-5.03); Red Cell Distribution Width 14.9 % (13.2-15.2)
[2021-10-04] MEDS ORDERED: WARFARIN 10 MG TAB PO NR (17:00)
[2021-10-04] MEDS ORDERED: REMDESIVIR 200 MG in SODIUM CHLORIDE 0.9% 250ML 250 ML IV ONE (17:00)
[2021-10-04] MEDS: SODIUM CHLORIDE 0.9% 50 ML IVPB IV SCH (17:10)
[2021-10-04] MEDS: DEXAMETHASONE 4 MG TAB PO SCH (17:10)
[2021-10-04 19:16] LABS: Alanine Aminotransferase 25 units/L (7-56); Albumin 3.7 g/dL (3.9-5); BUN/Creatinine Ratio 15; Blood Urea Nitrogen 12 mg/dL (9-20); Calcium 8.4 mg/dL (8.4-10.2); Hemolysis Index 7
[2021-10-05 06:27] LABS: INR 1.6 (0.87-1.13)
[2021-10-05 08:01] LABS: Alanine Aminotransferase 28 units/L (7-56); Albumin 3.9 g/dL (3.9-5); BUN/Creatinine Ratio 18; Blood Urea Nitrogen 14 mg/dL (9-20); Calcium 9.6 mg/dL (8.4-10.2); Hemolysis Index 8
--- NOTE | 2021-10-05 08:34 | Progress Note ---
Assessment and Plan Assessment and plan: #Sepsis-improving #Pneumonia #COVID-19 infection -CXR suggestive of PNA -CT of the chest non-contrast reviewed: Mild left-sided pleural effusion and left upper and lower lobe consolidation posteriorly -blood cultures collected -COVID-19 PCR positive 10/04; patient not vaccinated -dexamethasone and remdesivir started -ID consulted, assistance appreciated -continue levaquin -will monitor for clinical improvement #Newly diagnosed pulmonary emboli #Left leg swelling PE Visualized on CT angio chest. continues to be hemodynamically stable and on room air - continue heparin gtt while bridging with warfarin (INR goal 2-3). Pharmacy consulted for management. Current INR: 1.6 - LE duplex negative for DVT #Acute coronary syndromeruled out Unremarkable troponins TTE unremarkable with no sign of PFO #Alcohol dependence - Counseled patient on the importance of ETOH cessation. Assess patient's cu rrent ETOH consumption. Assisted with trying to arrange resources for patient to adequately work towards ETOH cessation. Patient expresses understanding. Continue with CIWA protocol, thiamine, folic acid, and banana bag. -Time: +15 mins #Tobacco dependence #Tobacco/Smoking cessation counseling - Counseled patient about the importance of smoking cessation and the possible sequelae as a result of continued tobacco consumption. The patient expresses understanding. Continue nicotine patch. -Time: +15 mins #Advanced care planning -Disease education conducted, care plan discussed, diagnoses discussed, prognosis discussed, and patient acknowledges understanding with care plan -Time: +30 min #Discharge planning - pending warfarin bridge with INR goal of 2-3 History Interval history: No acute events overnight. Patient has no complaints at this time. He was updated about current care plan. He voiced understanding. Hospitalist Physical - Physical exam Narrative exam: GENERAL: Thin male. In no acute distress. HEENT: Poor dentition. NECK: Supple. CHEST/LUNGS: CTAB on room air HEART/CARDIOVASCULAR: RRR. No murmur, rubs or gallops appreciated. ABDOMEN: +BS. NT/ND. SKIN: No rashes noted. NEURO: No focal motor deficit. Follows all commands. Walking around the room MUSCULOSKELETAL: No joint effusion EXTREMITIES: No cyanosis, clubbing. BLE edema improved. PSYCH: Cooperative. - Constitutional Vitals: Temp Pulse Resp BP Pulse Ox 98.2 F 75 18 125/74 91 10/04/21 22:44 10/04/21 22:44 10/04/21 22:44 10/04/21 22:44 10/04/21 22:44 General appearance: Present: no acute distress, severe distress, well-nourished HEART Score - HEART Score EKG: Non-specific Age: 45-65 Risk factors: 1-2 risk factors Troponin: Troponin T < 0.010 ng/mL (0.00-0.029) 09/26/21 06:04 Troponin: < normal limit - Critical Actions Critical Actions: 0-3 pts:0.9-1.7%risk of adverse cardiac event.Candidate for discharge Results - Labs CBC & Chem 7: 10/04/21 09:23 10/05/21 05:42 Labs: Laboratory Last Values WBC 8.7 K/mm3 (4.5-11.0) 10/04/21 09:23 RBC 3.66 M/mm3 (3.65-5.03) 10/04/21 09:23 Hgb 11.8 gm/dl (11.8-15.2) 10/04/21 09:23 Hct 34.8 % (35.5-45.6) L 10/04/21 09:23 MCV 95 fl (84-94) H 10/04/21 09:23 MCH 32 pg (28-32) 10/04/21 09:23 MCHC 34 % (32-34) 10/04/21 09:23 RDW 14.9 % (13.2-15.2) 10/04/21 09:23 Plt Count 241 K/mm3 (140-440) 10/04/21 09:23 Lymph % (Auto) 26.1 % (13.4-35.0) 09/27/21 04:00 Leake % (Auto) 8.8 % (0.0-7.3) H 09/27/21 04:00 Eos % (Auto) 2.3 % (0.0-4.3) 09/27/21 04:00 Baso % (Auto) 2.0 % (0.0-1.8) H 09/27/21 04:00 Lymph # (Auto) 1.6 K/mm3 (1.2-5.4) 09/27/21 04:00 Leake # (Auto) 0.5 K/mm3 (0.0-0.8) 09/27/21 04:00 Eos # (Auto) 0.1 K/mm3 (0.0-0.4) 09/27/21 04:00 Baso # (Auto) 0.1 K/mm3 (0.0-0.1) 09/27/21 04:00 Add Manual Diff Complete 09/26/21 06:04 Seg Neutrophils % 60.8 % (40.0-70.0) 09/27/21 04:00 Seg Neutrophils # 3.6 K/mm3 (1.8-7.7) 09/27/21 04:00 PT 21.0 Sec. (12.2-14.9) H 10/05/21 05:42 INR 1.60 (0.87-1.13) H 10/05/21 05:42 APTT 75.6 Sec. (24.2-36.6) H* 09/26/21 06:04 D-Dimer 1433.65 ng/mlDDU (0-234) H 09/25/21 18:42 Heparin Anti-Xa Level 1.14 U.I./ml (0.3-0.7) H 10/05/21 05:42 Sodium 133 mmol/L (137-145) L D 10/05/21 05:42 Potassium 3.7 mmol/L (3.6-5.0) 10/05/21 05:42 Chloride 93.4 mmol/L (98-107) L 10/05/21 05:42 Carbon Dioxide 21 mmol/L (22-30) L 10/05/21 05:42 Anion Gap 22 mmol/L 10/05/21 05:42 BUN 14 mg/dL (9-20) 10/05/21 05:42 Creatinine 0.8 mg/dL (0.8-1.3) 10/05/21 05:42 Estimated GFR > 60 ml/min 10/05/21 05:42 BUN/Creatinine Ratio 18 % 10/05/21 05:42 Glucose 102 mg/dL (75-100) H 10/05/21 05:42 Calcium 9.6 mg/dL (8.4-10.2) 10/05/21 05:42 Magnesium 2.20 mg/dL (1.7-2.3) 09/25/21 18:42 Total Bilirubin 0.30 mg/dL (0.1-1.2) 10/05/21 05:42 AST 41 units/L (5-40) H 10/05/21 05:42 ALT 28 units/L (7-56) 10/05/21 05:42 Alkaline Phosphatase 57 units/L (35-129) 10/05/21 05:42 Total Creatine Kinase 54 units/L (55-170) L 09/25/21 18:42 Troponin T < 0.010 ng/mL (0.00-0.029) 09/26/21 06:04 NT-Pro-B Natriuret Pep 339.5 pg/mL (0-900) 09/25/21 19:26 Total Protein 7.1 g/dL (6.3-8.2) 10/05/21 05:42 Albumin 3.9 g/dL (3.9-5) 10/05/21 05:42 Albumin/Globulin Ratio 1.2 % 10/05/21 05:42 Salicylates < 0.3 mg/dL (2.8-20.0) L 09/25/21 18:42 Acetaminophen 5.0 ug/mL (10.0-30.0) L 09/25/21 18:42 Plasma/Serum Alcohol < 0.01 % (0-0.07) 09/25/21 18:42 Coronavirus (PCR) Positive (Negative) A 10/04/21 12:30 Microbiology: Microbiology 10/04/21 05:09 Peripheral/Venous Blood Culture - Preliminary Culture in Progress 10/04/21 05:32 Peripheral/Venous Blood Culture - Preliminary Culture in Progress Newton/IV: Voiding Method Toilet Active Medications - Current Medications Current Medications: Generic Name Dose Route Start Last Admin Trade Name Freq PRN Reason Stop Dose Admin Acetaminophen 650 mg 09/26/21 01:30 10/04/21 17:11 Acetaminophen 325 Mg Tab PO 650 mg Q6H PRN Administration Pain, Mild (1-3) Atorvastatin Calcium 40 mg 09/26/21 22:00 10/04/21 22:41 Atorvastatin 40 Mg Tab PO 40 mg QHS W[place]ON Administration Chlordiazepoxide HCl 50 mg 09/25/21 18:36 Chlordiazepoxide 25 Mg Cap PO Q1HR PRN CIWA-Ar 8-15 Chlordiazepoxide HCl 100 mg 09/25/21 18:36 Chlordiazepoxide 25 Mg Cap PO Q1HR PRN CIWA-Ar 16-25 Dexamethasone 6 mg 10/04/21 17:00 10/04/21 17:10 Dexamethasone 4 Mg Tab PO 6 mg DAILY WINST[place] Administration Heparin Sodium (Porcine) 3,300 unit 09/26/21 01:30 09/29/21 19:09 Heparin 10,000 Units/10 Ml Vial 40 unit/kg (3300 unit) 3,300 unit IV Administration Q6H PRN Anti-Xa Assay < 0.1 units/ml Heparin Sodium/Sodium Chloride 25,000 unit in 500 mls @ 24 mls/hr 09/26/21 03:00 10/05/21 06:53 Heparin/ 0.45% Nacl-25,000 Unit/500 Ml IV Infused TITR [facility] Titration Protocol 1,200 UNITS/HR Levofloxacin/Dextrose 750 mg in 150 mls @ 100 mls/hr 10/04/21 06:00 10/05/21 06:53 Levaquin 750mg/150ml IV 100 mls/hr Q24H [place] Administration Remdesivir 100 mg/ Sodium 250 mls @ 500 mls/hr 10/05/21 14:00 Chloride IV 10/08/21 14:29 Q24HR@1400 W[place]ON Lorazepam 2 mg 09/25/21 18:36 09/26/21 20:44 Lorazepam 2 Mg Tab PO 2 mg Q1HR PRN Administration CIWA-Ar 8-15 Lorazepam 4 mg 09/25/21 18:36 Lorazepam 2 Mg Tab PO Q1HR PRN CIWA-Ar 16-25 Morphine Sulfate 2 mg 09/26/21 01:30 Morphine 4 Mg/1 Ml Inj IV Q5MIN PRN Chest Pain unrelieved by NTG Nicotine 14 mg 09/26/21 10:00 10/04/21 09:45 Nicotine 14 Mg/24 Hr Patch TD 14 mg QDAY [place] Administration Nitroglycerin 0.4 mg 09/26/21 01:30 Nitroglycerin 0.4 Mg Tab Subl SL Q5M PRN Chest Pain Pantoprazole Sodium 40 mg 09/26/21 10:00 10/04/21 09:44 Pantoprazole 40 Mg Tab PO 40 mg QDAY W[place] Administration Sodium Chloride 10 ml 09/26/21 01:30 10/04/21 22:41 Sodium Chloride 0.9% 10 Ml Flush Syringe IV 10 ml PRN PRN Administration LINE FLUSH Sodium Chloride 50 ml 10/04/21 17:00 10/04/21 17:10 Sodium Chloride 0.9% 50 Ml Ivpb IV 10/08/21 14:01 50 ml Q24HR@1400 W[place] Administration Tramadol HCl 50 mg 09/26/21 01:30 Tramadol 50 Mg Tab PO Q6H PRN Pain, Moderate (4-6) Warfarin Sodium 10 mg 10/04/21 17:00 10/04/21 17:09 Warfarin 10 Mg Tab PO 10/05/21 16:59 10 mg DAILY@1700 NR Administration Nutrition/Malnutrition Assess - Dietary Evaluation Nutrition/Malnutrition Findings: Nutrition Notes Start: 09/29/21 16:14 Freq: Status: Active Protocol: Document 10/01/21 17:16 JAIME (Rec: 10/01/21 17:30 JAIME [email or web address]) Nutrition Notes Initial or Follow up Brief Note Other Pertinent Diagnosis L-LE Swelling, Pulmonary Emboli, EtOH Abuse. Current Diet Regular Diet (since L 09/27), D Suppl (since L 10/01). Height 5 ft 8 in Weight 64.9 kg [place] Body Weight (kg) 70.00 BMI 21.7 Weight change and time frame Discrepancy of 15.0 Kg body weight loss reported in 2 days . Weight Status Appropriate Subjective/Other Information RD consult for dietary supplementation assessment. No reports available on Pt's PO intake of meals at the time , will assess at F/U. I will support dietary supplementation for possible poor or insufficient PO intake of meals during LOS. Pt is on Room Air, O2 saturation @ 99%, according to Physical Assessment History notes. Percent of energy/protein needs met: Prescribed Regular Diet provides for energy/protein needs (2,289 Kcal/89 g) during LOS; additionally, Dietary Supplements will compensate for possible poor or insufficient PO intake of meals with 1,050 Kcal and 60 g of protein. #1 Nutrition Diagnosis Predicted suboptimal energy intake Etiology Uncertain, As Evidenced by Signs and Symptoms No reports available on Pt's PO intake of meals at the time , will assess at F/U. Is patient on ventilator? No Is Patient Ambulatory and/or Out of Bed Yes REE-([facility]-ambulatory/OOB) [ 1844.050 [id number]] Calculation Used for Recommendations [facility] Additional Notes Protein: 0.8-1 g/Kg ABW; 64-80 g/day. Fluids: 1 ml/Kcal, or as per MD. Nutrition Intervention Change Diet Order: Continue Regular Diet as tolerated. Add Supplement/Snack (indicate name/kcal Start 8 fl oz Ensure Enlive; /protein ) TID Provides kCal: 1,050 Provides Protein (gm) 60 Goal #1 Compensate, through dietary supplementation, for possible poor or insufficient PO intake of meals during LOS. Goal #2 Adjust the dietary intervention to better serve Pt's needs and clinical conditions during LOS. Follow-Up By: 10/08/21 Additional Comments Continue monitoring food tolerance, %PO intake of meals , dietary supplements, and BM.
[2021-10-05] MEDS: DEXAMETHASONE 4 MG TAB PO SCH (09:12)
[2021-10-05] MEDS: PANTOPRAZOLE 40 MG TAB PO SCH (09:13)
[2021-10-05] MEDS: NICOTINE 14 MG/24 HR PATCH TD SCH (09:13)
[2021-10-05] MEDS: HEPARIN/ 0.45% NACL DRIP 25,000 UNIT/500 ML BAG IV SCH (09:17)
[2021-10-05] MEDS: REMDESIVIR 100 MG in SODIUM CHLORIDE 0.9% 250ML 250 ML IV SCH (13:43)
[2021-10-05] MEDS: SODIUM CHLORIDE 0.9% 50 ML IVPB IV SCH (13:46)
[2021-10-05] MEDS ORDERED: WARFARIN 10 MG TAB PO NR (17:00)
[2021-10-05] MEDS: ENOXAPARIN 100 MG/1 ML INJ SUB-Q SCH (18:04)
--- NOTE | 2021-10-05 20:07 | Consultation ---
History of Present Illness - Reason for Consult Consult date: 10/05/21 - History of Present Illness 61-year-old man past medical history tobacco abuse, alcohol abuse presented to hospital complaining of left-sided chest pain. This began a couple weeks prior to admission and was persistent in nature. Otherwise denies any complaints. On admission a CTA of the chest showed multiple subsegmental pulmonary emboli. During the admission he was found to have COVID-19, such we are consulted Febrile to 102.6 with a white count of 8.7. COVID-positive. Blood cultures no growth so far. Currently on dexamethasone, Levaquin, Remdesivir. Normal renal function. On room air. Imaging personally reviewed: Chest CT: Patchy airspace consolidation of the posterior left upper and lower lobes. Severe emphysema. Review of systems: Deferred to reduce to the risk of transmission of COVID-19 Past History Past Medical History: other (Tobacco abuse alcohol abuse) Past Surgical History: No surgical history Social history: smoking, alcohol abuse Family history: hypertension Medications and Allergies Allergies Allergy/AdvReac Type Severity Reaction Status Date / Time No Known Allergies Allergy Verified 09/28/21 10:24 Home Medications Medication Instructions Recorded Confirmed Last Taken Type AtorvaSTATin [Lipitor] 40 mg PO QHS 30 Days #30 tablet 10/02/21 Unknown Rx Warfarin [Coumadin] 7.5 mg PO DAILY@1700 30 Days #30 10/02/21 Unknown Rx tablet Dexamethasone 6 mg PO QDAY 7 Days #7 tab 10/05/21 Unknown Rx Pantoprazole [Protonix TAB] 40 mg PO QDAY 30 Days #30 tablet 10/05/21 Unknown Rx Active Meds: Active Medications Acetaminophen (Acetaminophen 325 Mg Tab) 650 mg PO Q6H PRN PRN Reason: Pain, Mild (1-3) Last Admin: 10/04/21 17:11 Dose: 650 mg Atorvastatin Calcium (Atorvastatin 40 Mg Tab) 40 mg PO QHS [place] Last Admin: 10/04/21 22:41 Dose: 40 mg Chlordiazepoxide HCl (Chlordiazepoxide 25 Mg Cap) 50 mg PO Q1HR PRN PRN Reason: CIWA-Ar 8-15 Chlordiazepoxide HCl (Chlordiazepoxide 25 Mg Cap) 100 mg PO Q1HR PRN PRN Reason: CIWA-Ar 16-25 Dexamethasone (Dexamethasone 4 Mg Tab) 6 mg PO DAILY [place] Stop: 10/13/21 10:01 Last Admin: 10/05/21 09:12 Dose: 6 mg Enoxaparin Sodium (Enoxaparin 100 Mg/1 Ml Inj) 100 mg SUB-Q Q24HR [facility]; Protocol Last Admin: 10/05/21 18:04 Dose: 100 mg Levofloxacin/Dextrose (Levaquin 750mg/150ml) 750 mg in 150 mls @ 100 mls/hr IV Q24H [facility] Last Admin: 10/05/21 06:53 Dose: 100 mls/hr Remdesivir 100 mg/ Sodium (Chloride) 250 mls @ 500 mls/hr IV Q24HR@1400 [facility] Stop: 10/08/21 14:29 Last Admin: 10/05/21 13:43 Dose: 500 mls/hr Lorazepam (Lorazepam 2 Mg Tab) 2 mg PO Q1HR PRN PRN Reason: CIWA-Ar 8-15 Last Admin: 09/26/21 20:44 Dose: 2 mg Lorazepam (Lorazepam 2 Mg Tab) 4 mg PO Q1HR PRN PRN Reason: CIWA-Ar 16-25 Morphine Sulfate (Morphine 4 Mg/1 Ml Inj) 2 mg IV Q5MIN PRN PRN Reason: Chest Pain unrelieved by NTG Nicotine (Nicotine 14 Mg/24 Hr Patch) 14 mg TD QDAY [facility] Last Admin: 10/05/21 09:13 Dose: 14 mg Nitroglycerin (Nitroglycerin 0.4 Mg Tab Subl) 0.4 mg SL Q5M PRN PRN Reason: Chest Pain Pantoprazole Sodium (Pantoprazole 40 Mg Tab) 40 mg PO QDAY [facility] Last Admin: 10/05/21 09:13 Dose: 40 mg Sodium Chloride (Sodium Chloride 0.9% 10 Ml Flush Syringe) 10 ml IV PRN PRN PRN Reason: LINE FLUSH Last Admin: 10/04/21 22:41 Dose: 10 ml Sodium Chloride (Sodium Chloride 0.9% 50 Ml Ivpb) 50 ml IV Q24HR@1400 [facility] Stop: 10/08/21 14:01 Last Admin: 10/05/21 13:46 Dose: 50 ml Tramadol HCl (Tramadol 50 Mg Tab) 50 mg PO Q6H PRN PRN Reason: Pain, Moderate (4-6) Warfarin Sodium (Warfarin 10 Mg Tab) 10 mg PO DAILY@1700 NR Stop: 10/06/21 16:59 Last Admin: 10/05/21 18:05 Dose: 10 mg Physical Examination - Physical Exam Narrative exam: Physical exam deferred to reduce risk of transmission of COVID-19. Please refer to primary team's note. - Constitutional Vitals: Vital Signs Temp Pulse Resp BP Pulse Ox 97.5 F L 58 L 20 111/70 97 10/05/21 16:52 10/05/21 16:52 10/05/21 16:52 10/05/21 16:52 10/05/21 16:52 Temperature -Last 24 Hours Temperature 97.5 F Temperature 98.4 F Temperature 98.2 F Results - Labs CBC & Chem 7: 10/04/21 09:23 10/05/21 05:42 Labs: Abnormal lab results 10/05/21 10/05/21 10/05/21 Range/Units 05:42 05:42 17:06 PT 21.0 H (12.2-14.9) Sec. INR 1.60 H (0.87-1.13) Heparin Anti-Xa Level 1.14 H 0.78 H (0.3-0.7) U.I./ml Sodium 133 L D (137-145) mmol/L Chloride 93.4 L (98-107) mmol/L Carbon Dioxide 21 L (22-30) mmol/L Glucose 102 H (75-100) mg/dL AST 41 H (5-40) units/L Assessment and Plan Cultures: Blood culture no growth so far A/P: 61-year-old man past medical history tobacco, possible abuse, emphysema now with: #Severe COVID-19 pneumonia: Patient presented with a week of symptoms, chest x-ray with diffuse bilateral infiltrates, admission O2 sats on room air. Inflammatory markers elevated #Acute hypoxemic respiratory failure: Likely secondary to COVID-19 infection. Currently on room air #Pulmonary embolus: Anticoagulation per hospital protocol Recommendations: -Dexamethasone 6 mg IV/PO daily for 10 days -Remdesivir x3 days given not requiring supplemental oxygen, but high risk for severe emphysema -Obtain q48-72h inflammatory markers - ferritin, Ddimer, CRP, LDH -Order procalcitonin -Continue Levaquin, if procalcitonin <0.25 ng/mL stop antibiotics -Anticoagulation per hospital protocol -Proning as able Thank you for the consult, we will continue to follow. Jersey Hooks MD [facility] ([facility] O: [phone] F: [phone]
[2021-10-06 07:26] LABS: INR 1.61 (0.87-1.13)
[2021-10-06 07:39] LABS: Alanine Aminotransferase 20 units/L (7-56); Albumin 3.3 g/dL (3.9-5); Blood Urea Nitrogen 16 mg/dL (9-20); Calcium 8.8 mg/dL (8.4-10.2); Hemolysis Index 3
[2021-10-06 07:46] LABS: BUN/Creatinine Ratio 27
[2021-10-06] MEDS: ENOXAPARIN 100 MG/1 ML INJ SUB-Q SCH (09:16)
[2021-10-06] MEDS: DEXAMETHASONE 4 MG TAB PO SCH (09:17)
[2021-10-06] MEDS: NICOTINE 14 MG/24 HR PATCH TD SCH (09:17)
[2021-10-06] MEDS: PANTOPRAZOLE 40 MG TAB PO SCH (09:17)
--- NOTE | 2021-10-06 12:06 | Progress Note ---
Assessment and Plan Cultures: Blood culture no growth so far A/P: 61-year-old man past medical history tobacco, possible abuse, emphysema now with: #Severe COVID-19 pneumonia: Patient presented with a week of symptoms, chest x- ray with diffuse bilateral infiltrates, admission O2 sats on room air. Inflammatory markers elevated #Acute hypoxemic respiratory failure: Likely secondary to COVID-19 infection. Currently on room air #Pulmonary embolus: Anticoagulation per hospital protocol Recommendations: -Dexamethasone 6 mg IV/PO daily for 10 days -Remdesivir x3 days given not requiring supplemental oxygen, but high risk for severe emphysema -Obtain q48-72h inflammatory markers - ferritin, Ddimer, CRP, LDH -Order procalcitonin -Continue Levaquin, if procalcitonin <0.25 ng/mL stop antibiotics -Anticoagulation per hospital protocol -Proning as able Thank you for the consult, if he is doing well okay to discharge without completing Remdesivir. ID will sign off. Please call questions. Jersey Hooks MD [facility] ([facility] O: [phone] F: [phone] Subjective Date of service: 10/06/21 Interval history: Afebrile overnight, no acute change. Remains on room air. Objective - Exam Narrative Exam: Physical exam deferred to reduce risk of transmission of COVID-19. Please refer to primary team's note. - Constitutional Vitals: Vital Signs Temp Pulse Resp BP Pulse Ox 98.7 F 75 18 112/70 98 10/05/21 21:18 10/05/21 21:18 10/05/21 21:18 10/05/21 21:18 10/05/21 22:00 Temperature -Last 24 Hours Temperature 98.7 F Temperature 97.5 F Temperature 98.4 F - Labs CBC & Chem 7: 10/04/21 09:23 10/06/21 06:57 Labs: Abnormal lab results 10/05/21 10/06/21 10/06/21 Range/Units 17:06 06:57 06:57 PT 21.1 H (12.2-14.9) Sec. INR 1.61 H (0.87-1.13) Heparin Anti-Xa Level 0.78 H (0.3-0.7) U.I./ml Sodium 132 L (137-145) mmol/L Carbon Dioxide 21 L (22-30) mmol/L Creatinine 0.6 L (0.8-1.3) mg/dL Total Protein 5.9 L (6.3-8.2) g/dL Albumin 3.3 L (3.9-5) g/dL
[2021-10-06] MEDS: SODIUM CHLORIDE 0.9% 50 ML IVPB IV SCH (14:37)
[2021-10-06] MEDS: REMDESIVIR 100 MG in SODIUM CHLORIDE 0.9% 250ML 250 ML IV SCH (14:37)
--- NOTE | 2021-10-06 16:14 | Progress Note ---
Assessment and Plan Assessment and plan: Patient has limited resources. Will be difficult to monitor his INR and check physician And to maintain therapeutic range of INR, case management assisting with Eliquis cards And giving resources to get coupon sent reduced hay deals. Will DC Lovenox and Coumadin and start Eliquis 10 mg twice a day for 7 days Followed by 5 mg twice a day [bleed for 6 months to 1 year to be determined by outpatient machine compositor upon discharge] And we will also set up hematology oncology follow-up upon discharge Discharge diagnosis: #Sepsis-improving #Pneumonia #COVID-19 infection -CXR suggestive of PNA -CT of the chest non-contrast reviewed: Mild left-sided pleural effusion and left upper and lower lobe consolidation posteriorly -blood cultures collected -COVID-19 PCR positive 10/04; patient not vaccinated -dexamethasone and remdesivir started -ID consulted, assistance appreciated -continue levaquin -will monitor for clinical improvement #Newly diagnosed pulmonary emboli #Left leg swelling; LE duplex negative for DVT PE Visualized on CT angio chest. continues to be hemodynamically stable and on room air -Will DC full dose Lovenox, oral Coumadin, daily monitoring of INR -Initiate Eliquis per protocol 10 mg twice a day for 1 week followed by 5 mg tw ice a day #Acute coronary syndromeruled out Unremarkable troponins TTE unremarkable with no sign of PFO #Alcohol dependence - Counseled patient on the importance of ETOH cessation. Assess patient's current ETOH consumption. Assisted with trying to arrange resources for patient to adequately work towards ETOH cessation. Patient expresses understanding. Continue with CIWA protocol, thiamine, folic acid, and banana bag. -Time: +15 mins #Tobacco dependence #Tobacco/Smoking cessation counseling - Counseled patient about the importance of smoking cessation and the possible sequelae as a result of continued tobacco consumption. The patient expresses understanding. Continue nicotine patch. -Time: +15 mins #Advanced care planning -Disease education conducted, care plan discussed, diagnoses discussed, prognosis discussed, and patient acknowledges understanding with care plan -Time: +30 min #Discharge planning Eliquis per protocol, case management to assist with Eliquis cards, discount coupons And assistance with medications Closely monitor the patient and adjust management as needed Possible discharge tomorrow if stable History Interval history: I have seen and examined the patient at the bedside, patient's chart and medications reviewed. Patient feels better, concerned about his lung clots discussed in detail the significance of the findings And the treatment plan, Patient is on Lovenox and Coumadin, INR 1.6 Vital signs reviewed Saturating well on room air Hospitalist Physical - Constitutional Vitals: Temp Pulse Resp BP Pulse Ox 98.7 F 75 18 112/70 96 10/05/21 21:18 10/05/21 21:18 10/05/21 21:18 10/05/21 21:18 10/06/21 12:12 General appearance: Present: no acute distress, well-nourished - EENT Eyes: Present: PERRL, EOM intact - Neck Neck: Present: supple, normal ROM - Respiratory Respiratory effort: normal Respiratory: bilateral: diminished, negative: rales, rhonchi, wheezing - Cardiovascular Rhythm: regular Heart Sounds: Present: S1 & S2 - Extremities Extremities: no ischemia, No edema - Abdominal General gastrointestinal: soft, non-tender, non-distended, normal bowel sounds - Integumentary Integumentary: Present: clear, warm - Psychiatric Psychiatric: appropriate mood/affect, cooperative - Neurologic Neurologic: moves all extremities HEART Score - HEART Score EKG: Non-specific Age: 45-65 Risk factors: 1-2 risk factors Troponin: Troponin T < 0.010 ng/mL (0.00-0.029) 09/26/21 06:04 Troponin: < normal limit - Critical Actions Critical Actions: 0-3 pts:0.9-1.7%risk of adverse cardiac event.Candidate for discharge Results - Labs CBC & Chem 7: 10/06/21 21:46 10/07/21 06:49 Labs: Laboratory Last Values WBC 8.7 K/mm3 (4.5-11.0) 10/04/21 09:23 RBC 3.66 M/mm3 (3.65-5.03) 10/04/21 09:23 Hgb 11.8 gm/dl (11.8-15.2) 10/04/21 09:23 Hct 34.8 % (35.5-45.6) L 10/04/21 09:23 MCV 95 fl (84-94) H 10/04/21 09:23 MCH 32 pg (28-32) 10/04/21 09:23 MCHC 34 % (32-34) 10/04/21 09:23 RDW 14.9 % (13.2-15.2) 10/04/21 09:23 Plt Count 241 K/mm3 (140-440) 10/04/21 09:23 Lymph % (Auto) 26.1 % (13.4-35.0) 09/27/21 04:00 [place] % (Auto) 8.8 % (0.0-7.3) H 09/27/21 04:00 Eos % (Auto) 2.3 % (0.0-4.3) 09/27/21 04:00 Baso % (Auto) 2.0 % (0.0-1.8) H 09/27/21 04:00 Lymph # (Auto) 1.6 K/mm3 (1.2-5.4) 09/27/21 04:00 [place] # (Auto) 0.5 K/mm3 (0.0-0.8) 09/27/21 04:00 Eos # (Auto) 0.1 K/mm3 (0.0-0.4) 09/27/21 04:00 Baso # (Auto) 0.1 K/mm3 (0.0-0.1) 09/27/21 04:00 Add Manual Diff Complete 09/26/21 06:04 Seg Neutrophils % 60.8 % (40.0-70.0) 09/27/21 04:00 Seg Neutrophils # 3.6 K/mm3 (1.8-7.7) 09/27/21 04:00 PT 21.1 Sec. (12.2-14.9) H 10/06/21 06:57 INR 1.61 (0.87-1.13) H 10/06/21 06:57 APTT 75.6 Sec. (24.2-36.6) H* 09/26/21 06:04 D-Dimer 1433.65 ng/mlDDU (0-234) H 09/25/21 18:42 Heparin Anti-Xa Level 0.78 U.I./ml (0.3-0.7) H 10/05/21 17:06 Sodium 132 mmol/L (137-145) L 10/06/21 06:57 Potassium 3.8 mmol/L (3.6-5.0) 10/06/21 06:57 Chloride 100.3 mmol/L (98-107) 10/06/21 06:57 Carbon Dioxide 21 mmol/L (22-30) L 10/06/21 06:57 Anion Gap 15 mmol/L 10/06/21 06:57 BUN 16 mg/dL (9-20) 10/06/21 06:57 Creatinine 0.6 mg/dL (0.8-1.3) L 10/06/21 06:57 Estimated GFR > 60 ml/min 10/06/21 06:57 BUN/Creatinine Ratio 27 % 10/06/21 06:57 Glucose 94 mg/dL (75-100) 10/06/21 06:57 Calcium 8.8 mg/dL (8.4-10.2) 10/06/21 06:57 Magnesium 2.20 mg/dL (1.7-2.3) 09/25/21 18:42 Total Bilirubin 0.20 mg/dL (0.1-1.2) 10/06/21 06:57 AST 24 units/L (5-40) 10/06/21 06:57 ALT 20 units/L (7-56) 10/06/21 06:57 Alkaline Phosphatase 49 units/L (35-129) 10/06/21 06:57 Total Creatine Kinase 54 units/L (55-170) L 09/25/21 18:42 Troponin T < 0.010 ng/mL (0.00-0.029) 09/26/21 06:04 NT-Pro-B Natriuret Pep 339.5 pg/mL (0-900) 09/25/21 19:26 Total Protein 5.9 g/dL (6.3-8.2) L 10/06/21 06:57 Albumin 3.3 g/dL (3.9-5) L 10/06/21 06:57 Albumin/Globulin Ratio 1.3 % 10/06/21 06:57 Procalcitonin 0.36 ng/mL (<0.15) 10/05/21 23:12 Salicylates < 0.3 mg/dL (2.8-20.0) L 09/25/21 18:42 Acetaminophen 5.0 ug/mL (10.0-30.0) L 09/25/21 18:42 Plasma/Serum Alcohol < 0.01 % (0-0.07) 09/25/21 18:42 Coronavirus (PCR) Positive (Negative) A 10/04/21 12:30 Microbiology: Microbiology 10/04/21 05:09 Peripheral/Venous Blood Culture - Preliminary NO GROWTH AFTER 48 HOURS 10/04/21 05:32 Peripheral/Venous Blood Culture - Preliminary NO GROWTH AFTER 48 HOURS [place]/IV: Voiding Method Toilet Active Medications - Current Medications Current Medications: Generic Name Dose Route Start Last Admin Trade Name Freq PRN Reason Stop Dose Admin Acetaminophen 650 mg 09/26/21 01:30 10/04/21 17:11 Acetaminophen 325 Mg Tab PO 650 mg Q6H PRN Administration Pain, Mild (1-3) Atorvastatin Calcium 40 mg 09/26/21 22:00 10/05/21 22:58 Atorvastatin 40 Mg Tab PO 40 mg QHS [place] Administration Chlordiazepoxide HCl 50 mg 09/25/21 18:36 Chlordiazepoxide 25 Mg Cap PO Q1HR PRN CIWA-Ar 8-15 Chlordiazepoxide HCl 100 mg 09/25/21 18:36 Chlordiazepoxide 25 Mg Cap PO Q1HR PRN CIWA-Ar 16-25 Dexamethasone 6 mg 10/04/21 17:00 10/06/21 09:17 Dexamethasone 4 Mg Tab PO 10/13/21 10:01 6 mg DAILY [facility] Administration Enoxaparin Sodium 100 mg 10/05/21 17:00 10/06/21 09:16 Enoxaparin 100 Mg/1 Ml Inj SUB-Q 100 mg Q24HR [place] Administration Protocol Levofloxacin/Dextrose 750 mg in 150 mls @ 100 mls/hr 10/04/21 06:00 10/06/21 05:21 Levaquin 750mg/150ml IV 100 mls/hr Q24H [place] Administration Lorazepam 2 mg 09/25/21 18:36 09/26/21 20:44 Lorazepam 2 Mg Tab PO 2 mg Q1HR PRN Administration CIWA-Ar 8-15 Lorazepam 4 mg 09/25/21 18:36 Lorazepam 2 Mg Tab PO Q1HR PRN CIWA-Ar 16-25 Morphine Sulfate 2 mg 09/26/21 01:30 Morphine 4 Mg/1 Ml Inj IV Q5MIN PRN Chest Pain unrelieved by NTG Nicotine 14 mg 09/26/21 10:00 10/06/21 09:17 Nicotine 14 Mg/24 Hr Patch TD 14 mg QDAY [facility] Administration Nitroglycerin 0.4 mg 09/26/21 01:30 Nitroglycerin 0.4 Mg Tab Subl SL Q5M PRN Chest Pain Pantoprazole Sodium 40 mg 09/26/21 10:00 10/06/21 09:17 Pantoprazole 40 Mg Tab PO 40 mg QDAY [facility] Administration Sodium Chloride 10 ml 09/26/21 01:30 10/06/21 09:17 Sodium Chloride 0.9% 10 Ml Flush Syringe IV 10 ml PRN PRN Administration LINE FLUSH Tramadol HCl 50 mg 09/26/21 01:30 Tramadol 50 Mg Tab PO Q6H PRN Pain, Moderate (4-6) Warfarin Sodium 10 mg 10/06/21 17:00 Warfarin 10 Mg Tab PO 10/07/21 16:59 DAILY@1700 NR Nutrition/Malnutrition Assess - Dietary Evaluation Nutrition/Malnutrition Findings: Nutrition Notes Start: 09/29/21 16:14 Freq: Status: Active Protocol: Document 10/01/21 17:16 JAIME (Rec: 10/01/21 17:30 JAIME [id number]) Nutrition Notes Initial or Follow up Brief Note Other Pertinent Diagnosis L-LE Swelling, Pulmonary Emboli, EtOH Abuse. Current Diet Regular Diet (since L 09/27), D Suppl (since L 10/01). Height 5 ft 8 in Weight 64.9 kg [place] Body Weight (kg) 70.00 BMI 21.7 Weight change and time frame Discrepancy of 15.0 Kg body weight loss reported in 2 days . Weight Status Appropriate Subjective/Other Information RD consult for dietary supplementation assessment. No reports available on Pt's PO intake of meals at the time , will assess at F/U. I will support dietary supplementation for possible poor or insufficient PO intake of meals during LOS. Pt is on Room Air, O2 saturation @ 99%, according to Physical Assessment History notes. Percent of energy/protein needs met: Prescribed Regular Diet provides for energy/protein needs (2,289 Kcal/89 g) during LOS; additionally, Dietary Supplements will compensate for possible poor or insufficient PO intake of meals with 1,050 Kcal and 60 g of protein. #1 Nutrition Diagnosis Predicted suboptimal energy intake Etiology Uncertain, As Evidenced by Signs and Symptoms No reports available on Pt's PO intake of meals at the time , will assess at F/U. Is patient on ventilator? No Is Patient Ambulatory and/or Out of Bed Yes REE-(MilamTasneem Morales-ambulatory/OOB) [ 1844.050 [id number]] Calculation Used for Recommendations MilamSt Morales Additional Notes Protein: 0.8-1 g/Kg ABW; 64-80 g/day. Fluids: 1 ml/Kcal, or as per MD. Nutrition Intervention Change Diet Order: Continue Regular Diet as tolerated. Add Supplement/Snack (indicate name/kcal Start 8 fl oz Ensure Enlive; /protein ) TID Provides kCal: 1,050 Provides Protein (gm) 60 Goal #1 Compensate, through dietary supplementation, for possible poor or insufficient PO intake of meals during LOS. Goal #2 Adjust the dietary intervention to better serve Pt's needs and clinical conditions during LOS. Follow-Up By: 10/08/21 Additional Comments Continue monitoring food tolerance, %PO intake of meals , dietary supplements, and BM.
[2021-10-06] MEDS ORDERED: WARFARIN 10 MG TAB PO NR (17:00)
[2021-10-06 22:14] LABS: Hematocrit 39.6 % (35.5-45.6); Hemoglobin 13.2 gm/dl (11.8-15.2); Mean Corpuscular HGB Conc 34 % (32-34); Mean Corpuscular Volume 97 fl (84-94); Platelet Count 269 K/mm3 (140-440); Red Blood Count 4.09 M/mm3 (3.65-5.03)
[2021-10-06 22:25] LABS: INR 1.69 (0.87-1.13); Partial Thromboplastin Time 52.3 Sec. (24.2-36.6)
[2021-10-06] MEDS: APIXABAN 5 MG TAB PO SCH (23:01)
[2021-10-07 07:14] LABS: INR 2.67 (0.87-1.13)
[2021-10-07 07:28] LABS: Alanine Aminotransferase 20 units/L (7-56); Albumin 3.4 g/dL (3.9-5)
[2021-10-07 07:45] LABS: Blood Urea Nitrogen 17 mg/dL (9-20); Calcium 8.9 mg/dL (8.4-10.2); Hemolysis Index 6
[2021-10-07 07:55] LABS: BUN/Creatinine Ratio 28
--- NOTE | 2021-10-07 08:32 | Discharge Summary ---
Providers - Providers Date of Admission: 09/26/21 01:31 Date of discharge: 10/07/21 Attending physician: VIVIAN ESCALANTE 09/26/21 Consult to Cardiac Rehabilitation [CONS] Routine Reason For Exam: Phase I 10/04/21 15:26 Consult to Physician [CONS] Routine Comment: Consulting Provider: SINDI DE LEON Physician Instructions: Reason For Exam: SYMPTOMATIC COVID Primary care physician: ANNABEL RODRIGUEZ Hospitalization Reason for admission: Lower extremity swelling. Left foot pain. Atypical left- sided chest pain Condition: Good Pertinent studies: Chest x-ray Ankle x-ray Foot x-ray Tibia-fibula x-ray CTA chest Echocardiogram Lower extremity venous Doppler X-ray chest CT chest Hospital course: 61-year-old gentleman with history of tobacco abuse and alcohol abuse was brought to the emergency room because of intermittent left-sided chest discomfort, present for the past few weeks. The chest discomfort does not radiate to the back, arms. There is occasional left-sided trapezius discomfort. The patient denies travel, surgery, immobilization. The patient does report a mechanical fall around 2 weeks ago, and has subsequent left lower extremity swelling. He also has left plantar foot pain. He currently has no headache, midline neck pain, abdominal pain, vomiting. He d enies hematemesis and bright red blood per rectum. He occasionally consumes alcohol. His last alcoholic beverage was yesterday. In the emergency room initial cardiac enzyme is negative troponin is 0.010, x- ray of the foot shows no acute abnormality but CTA of the chest showed multiple subsegmental pulmonary embolism. Upper lobe predominant severe emphysema. Admitted on full dose Lovenox and Coumadin with therapeutic goal of INR between 2-3. As patient is noncompliant, chronic alcohol use, no resources, patient may not be a candidate who can be compliant with frequent checking of INR to therapeutic goal with Lovenox and Coumadin, we switched to Eliquis, case management assisted with Eliquis cards and discount coupons. Patient was also tested positive for COVID-19 Evaluated by received treatment per protocol Patient was given strict instructions to comply with medications, smoking cessation counseling done, strongly advised to quit alcohol intake Patient is hemodynamically and clinically stable at discharge. Assessment and plan: #Sepsis-improving #Pneumonia #COVID-19 infection -CXR suggestive of PNA -CT of the chest non-contrast reviewed: Mild left-sided pleural effusion and left upper and lower lobe consolidation posteriorly -blood cultures collected -COVID-19 PCR positive 10/04; patient not vaccinated -dexamethasone and remdesivir started -ID consulted, assistance appreciated -continue levaquin -will monitor for clinical improvement #Newly diagnosed pulmonary emboli #Left leg swelling; LE duplex negative for DVT PE Visualized on CT angio chest. continues to be hemodynamically stable and on room air -Will DC full dose Lovenox, oral Coumadin, daily monitoring of INR -Initiate Eliquis per protocol 10 mg twice a day for 1 week followed by 5 mg twice a day #Acute coronary syndromeruled out Unremarkable troponins TTE unremarkable with no sign of PFO #Alcohol dependence - Counseled patient on the importance of ETOH cessation. Advised alcohol rehabilitation, advised to join alcohol Anonymous support group #Tobacco dependence #Tobacco/Smoking cessation counseling - Counseled patient about the importance of smoking cessation and the possible sequelae as a result of continued tobacco consumption. The patient expresses understanding. Continue nicotine patch. -Time: +15 mins #Advanced care planning -Disease education conducted, care plan discussed, diagnoses discussed, prognosis discussed, and patient acknowledges understanding with care plan -Time: +30 min #Preventive care counseling ; +30 minutes Smoking cessation counseling; 15 minutes #Discharge planning Eliquis per protocol, case management to assist with Eliquis cards, discount coupons And assistance with medications Patient is stable at discharge. Disposition: 01 HOME / SELF CARE / HOMELESS Final Discharge Diagnosis (Prints w/discharge instructions): Sepsis secondary to pneumonia[community-acquired]. COVID-19 infection. Newly diagnosed pulmonary emboli. Left leg swelling negative DVT. Acute coronary syndrome ruled out. Alcohol dependence. Tobacco dependence. Smoking cessation counseling Time spent for discharge: 35 min Core Measure Documentation - Palliative Care Palliative Care/ Comfort Measures: Not Applicable - Core Measures Any of the following diagnoses?: DVT/PE - VTE Discharge Requirements Deep Vein Thrombosis/Pulmonary Embolism Present on Admission: Yes Has pt received <5 days of overlap therapy or INR<2.0: No (Patient is on Eliquis) Anticoagulant overlap therapy prescribed at discharge: No Contraindication No Overlap Therapy order at DC: Not Indicated (Patient is on Eliquis) Exam - Constitutional Vitals: Temp Pulse Resp BP Pulse Ox 98.6 F 50 L 16 122/73 97 10/07/21 04:12 10/07/21 04:12 10/07/21 04:12 10/07/21 04:12 10/07/21 04:12 General appearance: Present: no acute distress, well-nourished - EENT Eyes: Present: PERRL, EOM intact - Neck Neck: Present: supple, normal ROM - Respiratory Respiratory effort: normal Respiratory: bilateral: diminished, negative: rales, rhonchi, wheezing - Cardiovascular Rhythm: regular Heart Sounds: Present: S1 & S2 - Extremities Extremities: no ischemia, No edema - Abdominal General gastrointestinal: Present: soft, non-tender, non-distended, normal bowel sounds - Integumentary Integumentary: Present: clear, warm - Musculoskeletal Musculoskeletal: strength equal bilaterally - Psychiatric Psychiatric: appropriate mood/affect, agitated - Neurologic Neurologic: moves all extremities Plan Activity: advance as tolerated Diet: regular Additional Instructions: COVID-19 precautions and protocols per CDC guidelines as instructed by the discharge nurse. If you notice any bleeding contact MD, hold Eliquis. If you have worsening symptoms contact MD or go to the nearest emergency room as needed. Advised smoking cessation. Strongly advised to quit alcohol intake, seek alcohol rehabilitation Follow up with: ANNABEL RODRIGUEZ MD [Primary Care Provider] - 3-5 Days CHRISTINA GRANADO MD [Staff Physician] - 14 Days Prescriptions: Dexamethasone 6 mg PO DAILY #6 Apixaban [Eliquis] 2 tab PO BID #24 Apixaban [Eliquis] 5 mg PO Q12HR #60 tablet Folic Acid [Folvite] 1 mg PO QDAY #30 tablet AtorvaSTATin [Lipitor] 40 mg PO QHS 30 Days #30 tablet Pantoprazole [Protonix TAB] 40 mg PO QDAY 30 Days #30 tablet Thiamine [Vitamin B-1] 100 mg PO QDAY #30 tablet
[2021-10-07] MEDS: DEXAMETHASONE 4 MG TAB PO SCH (10:40)
[2021-10-07] MEDS: APIXABAN 5 MG TAB PO SCH (10:42)
[2021-10-07] MEDS: PANTOPRAZOLE 40 MG TAB PO SCH (10:42)
[2021-10-07] MEDS: NICOTINE 14 MG/24 HR PATCH TD SCH (10:42)
[2021-10-07 17:37] VITALS: BP 124/70
[2021-10-13] MEDS ORDERED: APIXABAN 5 MG TAB PO SCH (22:00)
== END 2021-10-07 18:30 | disposition home or self-care (01) | DRG 175 ==
LOC: ED 07:14 → 4A 09-26 01:31 → 3A 10-04 18:26
PROVIDERS: ADMIT Hospitalist; ATTEND Internal Medicine
PROC: XW033E5 Introduction of Remdesivir Anti-infective into Peripheral Vein, Percutaneous Approach, New Technology Group 5 (ICD-10-PCS; principal; 2021-10-04)
DX: I26.99 Other pulmonary embolism without acute cor pulmonale (principal); A41.9 Sepsis, unspecified organism; U07.1 COVID-19; J12.82 Pneumonia due to coronavirus disease 2019; J96.01 Acute respiratory failure with hypoxia; M79.89 Other specified soft tissue disorders; F17.200 Nicotine dependence, unspecified, uncomplicated; Z82.49 Family history of ischemic heart disease and other diseases of the circulatory system; Y90.9 Presence of alcohol in blood, level not specified; F10.20 Alcohol dependence, uncomplicated; Z71.6 Tobacco abuse counseling
CPT/HCPCS: 36415; 71045; 71046; 71250; 71275; 80048; 80053; 80320; 82550; 83735; 83880; 84145; 84484; 85014; 85018; 85025; 85027; 85049; 85379; 85520; 85610; 85730; 87040; 93005; 93306; 93970; 99406; G0378; J3490; C8929; G0480; J1644; J1650; J1956; J3411; J7030; J7050; J8540; Q9967; U0003